=== PATIENT | male | born 1970 | race Caucasian/White ===

== ENCOUNTER 2025-06-20 18:22 | Emergency (ER) | payer OTHER, SELFPAY ==
[2025-06-20 18:25] VITALS: BP 164/106; PULSE 77; TEMP 37; O2SAT 97; BMI 33.4
--- NOTE | 2025-06-20 18:30 | ECG_ITS ---
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 Measurements Intervals [place] Rate: 77 P: 66 ME: 146 QRS: 103 QRSD: 106 T: -7 QT: 383 QTc: 434 Interpretive Statements SINUS RHYTHM POSSIBLE LEFT ATRIAL ENLARGEMENT [-0.1mV P-WAVE IN V1/V2] RIGHT AXIS DEVIATION [QRS AXIS > 100] NONSPECIFIC ST & T-WAVE ABNORMALITY INTERPRETATION BASED ON A DEFAULT AGE OF 40 YEARS No previous ECG available for comparison Electronically Signed On 06-21-2025 12:49:57 CDT by Kit Holden M.D. [email or web address] [id number]
--- NOTE | 2025-06-20 18:54 | XRR_ITS ---
PROCEDURE INFORMATION: Exam: XR Chest Exam date and time: 06/20/2025 7:10 PM Age: 55 years old Clinical indication: Pain; Chest pressure; Additional info: Cp TECHNIQUE: Imaging protocol: Radiologic exam of the chest. Views: 1 view. COMPARISON: US ROR duplex aorta 04/21/2025 8:58 AM FINDINGS: Lungs: Unremarkable. No consolidation. Pleural spaces: Unremarkable. No pleural effusion. No pneumothorax. Heart/Mediastinum: Unremarkable. No cardiomegaly. Bones/joints: Unremarkable. XR/XR chest 1V portable [id number] IMPRESSION: No acute findings.
[2025-06-20 19:20] LABS: Hematocrit 45.5 % (37-53); Hemoglobin 16.10 g/dL (11.27-16.99); Mean Corpuscular HGB Conc 35.4 g/dL (30-55); Mean Corpuscular Hemoglobin 31.0 pg (27-33); Mean Corpuscular Volume 87.5 fl (82-101); Nucleated Red Blood Cells % 0 %; Platelet Count 319 10^3/cmm (157-399); Red Blood Count 5.20 10^6/uL (3.85-5.65); White Blood Count 9.98 10^3/uL (3.29-11.43)
--- NOTE | 2025-06-20 19:23 | W.ED.CHESTPA ---
HPI - Chest Pain General: Chief Complaint: Chest Pain Stated Complaint: Chest Pressure Time Seen by Provider: 06/20/25 18:33 History of Present Illness: 55-year-old male with a history of hypertension presenting with chest pressure, some palpitations, and feeling flushed. Has had the symptoms the last couple days. He checks his blood pressure religiously. He is on telmisartan/hydrochlorothiazide and amlodipine. He notes that his blood pressure was as high as 155/104 at home, which was concerning to him because normally it is 120/80 to 130/85. He denies any respiratory symptoms including shortness of breath, cough, congestion. He denies lower extremity swelling. Related Data Previous Rx's ?Medication ?Instructions ?Recorded hydralazine 25 mg tablet 25 mg PO TID PRN High blood 06/20/25 pressure #30 tabs Allergies Allergy/AdvReac Type Severity Reaction Status Date / Time No Known Allergies Allergy Verified 06/20/25 18:36 Physical Exam Const: COMMON NORMALS: no acute distress GENERAL APPEARANCE: cooperative; not ill appearing and not frail appearing HENMT: COMMON NORMALS: normocephalic, atraumatic and Normal external nose present HEAD & SCALP: normocephalic and atraumatic FACE & SINUS: normal facial exam and face symmetric NOSE: Normal external nose present Eye: COMMON NORMALS: Equal, round and reactive pupils present and EOMs intact bilaterally PUPIL: Yes Equal, round and reactive pupils present Neck/C-Spine: GENERAL: Yes trachea midline Chest: CHEST: Yes Symmetrical chest wall rise Resp: COMMON NORMALS: normal respiratory effort, No retractions, No use of accessory muscles and clear to auscultation bilaterally AUSCULTATION: clear to auscultation bilaterally Cardio: COMMON NORMALS: regular rate and regular rhythm RATE: regular rate RHYTHM: regular rhythm GI: COMMON NORMALS: Normal to inspection, nondistended, normoactive bowel sounds present Extremity: COMMON NORMALS: no pedal edema Neuro: JAYDON COMA SCALE: document GCS findings [place] coma scale eye opening: Spontaneous [place] coma scale verbal response: Orientated [place] coma scale motor response: Obey commands Jaydon coma scale total score: 15 SENSORY EXAM: Yes extremities (intact) Psych: COMMON NORMALS: speech normal SPEECH: Yes normal speech Skin: COMMON NORMALS: no rashes or lesions noted GENERAL SKIN EXAM: no rashes or lesions noted Course Vital Signs: Vital signs: Vital Signs Temperature 98.6 F 06/20/25 18:25 Pulse Rate 60 06/20/25 22:09 Respiratory Rate 18 06/20/25 21:53 Blood Pressure 164/94 06/20/25 22:09 Pulse Oximetry 96 06/20/25 22:09 Oxygen Delivery Me thod Room Air 06/20/25 20:25 MDM - Chest Pain Medical Decision Making Patient is hypertensive. Vital signs are otherwise stable. EKG shows a sinus rhythm borderline right axis. Intervals are normal. No significant ST wave changes. Chest x-ray is nonacute. Sodium is 130. Otherwise BMP is normal. Troponins are 8 and 7.7 at 0 and 2 hours respectively. BNP is nondetectable. COVID is negative. He is given metoprolol with improvement in his blood pressure down to 138/90. He is feeling somewhat improved. He is stable for discharge. Will give him a prescription for clonidine to take if his blood pressure is high and is symptomatic. He is instructed not to take it unless necessary. Parameters are given Lab Data 06/20/25 19:13 06/20/25 19:13 Radiology Impressions Chest X-Ray 06/20/25 18:54 IMPRESSION: No acute findings. Laboratory Results WBC 9.98 10^3/uL (3.29-11.43) 06/20/25 19:13 RBC 5.20 10^6/uL (3.85-5.65) 06/20/25 19:13 Hgb 16.10 g/dL (11.27-16.99) 06/20/25 19:13 Hct 45.5 % (37-53) 06/20/25 19:13 MCV 87.5 fl (82-101) 06/20/25 19:13 MCH 31.0 pg (27-33) 06/20/25 19:13 MCHC 35.4 g/dL (30-55) 06/20/25 19:13 RDW 12.0 % (12.1-15.1) L 06/20/25 19:13 Plt Count 319 10^3/cmm (157-399) 06/20/25 19:13 MPV 8.8 fL (7.4-10.4) 06/20/25 19:13 Neut % (Auto) 69.6 % 06/20/25 19:13 Lymph % (Auto) 20.4 % 06/20/25 19:13 [place] % (Auto) 8.9 % 06/20/25 19:13 Eos % (Auto) 0.5 % 06/20/25 19:13 Baso % (Auto) 0.3 % 06/20/25 19:13 Neut # (Auto) 6.94 10^3/uL (1.8-7.7) 06/20/25 19:13 Lymph # (Auto) 2.0 10^3/uL (0.8-4.8) 06/20/25 19:13 [place] # (Auto) 0.9 10^3/uL (0.2-0.9) 06/20/25 19:13 Eos # (Auto) 0.1 10^3/uL (0.0-0.8) 06/20/25 19:13 Baso # (Auto) 0.0 10^3/uL (0.0-0.1) 06/20/25 19:13 Nucleated RBC % (auto) 0 % 06/20/25 19:13 Nucleated RBCs # 0.0 /100WBC 06/20/25 19:13 Sodium 130 mmol/L (136-145) L 06/20/25 19:13 Potassium 3.7 mmol/L (3.5-5.1) 06/20/25 19:13 Chloride 92 mmol/L (98-107) L 06/20/25 19:13 Carbon Dioxide 25 mmol/L (22-29) 06/20/25 19:13 Anion Gap 16.7 (5-19) 06/20/25 19:13 BUN 10 mg/dL (6-20) 06/20/25 19:13 Creatinine 1.0 mg/dL (0.7-1.2) 06/20/25 19:13 GFR Calculation 78.2 mL/min (90-130) L 06/20/25 19:13 Glucose 114 mg/dL (65-115) 06/20/25 19:13 Calculated Osmolality 270 mOsm/kg (285-295) L 06/20/25 19:13 Calcium 9.9 mg/dL (8.5-10.5) 06/20/25 19:13 Total Bilirubin 0.7 mg/dL (0.15-1.2) 06/20/25 19:13 AST 22 U/L (0-40) 06/20/25 19:13 ALT 22 U/L (0-41) 06/20/25 19:13 Alkaline Phosphatase 89 U/L (40-130) 06/20/25 19:13 Troponin T Baseline 8 ng/L (0-15) 06/20/25 19:13 Troponin T 120 Minute 7.71 ng/L (0-15) 06/20/25 20:57 Delta Troponin T -0.29 ABS# (0-10) L 06/20/25 20:57 NT-Pro-B Natriuret Pep < 36 pg/mL (0-125) 06/20/25 19:13 Total Protein 8.0 g/dL (6.6-8.7) 06/20/25 19:13 Albumin 5.2 g/dL (3.5-5.2) 06/20/25 19:13 Globulin 2.8 g/dL (1.3-4.6) 06/20/25 19:13 TSH 1.30 uIU/mL (0.27-4.20) 06/20/25 19:13 Urine Color Yellow (Yellow) 06/20/25 19:23 Urine Appearance Clear (CLEAR) 06/20/25 19:23 Urine pH 6.5 (5-7) 06/20/25 19:23 Ur Specific [place] 1.008 (1.005-1.030) 06/20/25 19:23 Urine Protein Negative (Negative) 06/20/25 19:23 Urine Glucose (UA) Negative (Normal) 06/20/25 19:23 Urine Ketones Negative (Negative) 06/20/25 19:23 Urine Blood Negative (Negative) 06/20/25 19:23 Urine Nitrate Negative (Negative) 06/20/25 19:23 Urine Bilirubin Negative (Negative) 06/20/25 19:23 Urine Urobilinogen 0.2 mg/dL (Negative) 06/20/25 19:23 Ur Leukocyte Esterase Negative (Negative) 06/20/25 19:23 Urine RBC 0-2 /hpf (0-2) 06/20/25 19:23 Urine WBC 0-5 /hpf (0-5) 06/20/25 19:23 Ur Squamous Epith Cells 0-5 /hpf (0-5) 06/20/25 19:23 Amorphous Sediment Not Reportable 06/20/25 19:23 Urine Bacteria None seen /hpf (NONE) 06/20/25 19:23 Hyaline Casts 0-4 /lpf H 06/20/25 19:23 Influenza A (PCR) Negative (Negative) 06/20/25 19:20 Influenza Type B (PCR) Negative (Negative) 06/20/25 19:20 RSV (PCR) Negative (Negative) 06/20/25 19:20 SARS-CoV-2 (PCR) Negative (Negative) 06/20/25 19:20 All radiology interpretation(s) finalized by discharge Discharge Plan Discharge Patient Disposition: Home Clinical Impression: Chest pain, Hypertension Condition: Stable Prescriptions: New hydralazine 25 mg tablet 25 mg PO TID PRN (Reason: High blood pressure) Qty: 30 0RF Discharge Orders: Discharge ED (Routine); Ordered 06/20/25 Ordered By: Ahmet Devlin Referrals: Darren Jeffries MD [Primary Care Provider, Family Practice] Patient Instructions: Chest Pain (ED), Hypertension (ED), Opioid Safety, Pain Management, Patient Portal & Ethan Instructions Activity Restrictions/Additional Instructions: Take your blood pressure medication as you would normally in the morning. Do not check your blood pressure tonight. Fill medication prescription tomorrow. If blood pressure is greater than 160 systolic (the top number) you may take the medication to lower your blood pressure. Wait at least an hour and a half before rechecking. Return for worsening pain despite treatment, development of other new concerning symptoms. Call your doctor tomorrow for follow-up appointment. Print Language: Latvian Coding Level of Care Code ED Health And Nutrition Specialist for Malcom Castellanos
[2025-06-20 19:29] VITALS: BP 164/105; PULSE 69; RESP 16; O2SAT 95
[2025-06-20 19:40] LABS: Glucose Urine UA Negative (Normal); Nitrate Urine Negative (Negative); Specific Gravity, Urine 1.008 (1.005-1.030)
[2025-06-20 19:45] LABS: Add Urine Microscopic? YES
[2025-06-20 20:04] LABS: Troponin(5th) Baseline 8 ng/L (0-15)
[2025-06-20 20:15] LABS: Alanine Aminotransferase 22 U/L (0-41); Albumin Level 5.2 g/dL (3.5-5.2); Alkaline Phosphatase 89 U/L (40-130); Anion Gap 16.7 (5-19); Aspartate Amino Transferase 22 U/L (0-40); Blood Urea Nitrogen 10 mg/dL (6-20); Calcium 9.9 mg/dL (8.5-10.5); Carbon Dioxide 25 mmol/L (22-29); Chloride 92 mmol/L (98-107); Creatinine Clr Calc Pharmacy 97.8218; Globulin 2.8 g/dL (1.3-4.6); Glucose 114 mg/dL (65-115); NT Pro B Type Natriuretic Pept < 36 pg/mL (0-125); Osmolality Calculated 270 mOsm/kg (285-295); Potassium 3.7 mmol/L (3.5-5.1); Sodium 130 mmol/L (136-145); Thyroid Stimulating Hormone 1.30 uIU/mL (0.27-4.20); Total Protein 8.0 g/dL (6.6-8.7)
[2025-06-20 20:20] LABS: Respiratory Syncytial Virus Ce NEGATIVE (Negative); SARS-CoV-2 PCR NEGATIVE (Negative)
[2025-06-20 20:25] VITALS: BP 165/95; PULSE 66; RESP 12; O2SAT 96
--- NOTE | 2025-06-20 20:32 | ECG_ITS ---
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
[2025-06-20] MEDS: metoprolol tartrate 1 mg/1 mL SDV 5 mL 5 MG IVP (20:58)
[2025-06-20 21:28] LABS: Troponin 5 2HR 7.71 ng/L (0-15)
[2025-06-20 21:32] LABS: Troponin 5 2HR Delta -0.29 ABS# (0-10)
[2025-06-20 21:53] VITALS: BP 138/90; PULSE 70; RESP 18; O2SAT 97
[2025-06-20] MEDS: LORazepam 1 MG/0.5 ML injection IVP (21:57)
[2025-06-20 22:09] VITALS: BP 164/94; PULSE 60; O2SAT 96
== END 2025-06-20 22:10 | disposition home or self-care (01) ==
PROVIDERS: Emergency Provider Emergency Medicine; PCP Family Medicine
DX: R07.9 Chest pain, unspecified (principal); I10 Essential (primary) hypertension; Z11.52 Encounter for screening for COVID-19
CPT/HCPCS: 36415; 71045; 80053; 81001; 83880; 84443; 84484; 85025; 87637; 93005; 96374; 96375; 99285; J2060; J3490

== ENCOUNTER 2025-06-23 06:05 | Observation (INO) | payer OTHER, SELFPAY ==
[2025-06-23] VITALS (12 sets, daily range): BP systolic 128–164; BP diastolic 84–108; PULSE 67–96; RESP 15–20; TEMP 36.8–37.2; O2SAT 94–99; BMI 33.4; BMI 31.7
--- NOTE | 2025-06-23 06:06 | ECG_ITS ---
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 Measurements Intervals [place] Rate: 92 P: 71 TN: 144 QRS: 66 QRSD: 94 T: 19 QT: 366 QTc: 455 Interpretive Statements SINUS RHYTHM MODERATE ST DEPRESSION [0.05+ mV ST DEPRESSION] Compared to ECG 06/20/2025 20:32:23 ST (T wave) deviation now present T-wave abnormality no longer present Electronically Signed On 06-24-2025 08:37:44 CDT by Reed Wang M.D. [email or web address]
--- NOTE | 2025-06-23 06:06 | XRR_ITS ---
PROCEDURE INFORMATION: Exam: XR Chest Exam date and time: 06/23/2025 6:12 AM Age: 55 years old Clinical indication: Pain; Chest pressure; Additional info: Cp TECHNIQUE: Imaging protocol: Radiologic exam of the chest. Views: 1 view. COMPARISON: CR (CHEST, ) 06/20/2025 7:10 PM FINDINGS: Lungs: Unremarkable. No consolidation. Pleural spaces: Unremarkable. No pleural effusion. No pneumothorax. Heart/Mediastinum: Unremarkable. No cardiomegaly. Bones/joints: Unremarkable. XR/XR chest 1V portable [id number] IMPRESSION: No acute findings.
--- OUTSIDE RECORDS SUMMARY | 2025-06-23 06:08 | XMS_ITS | Data Portability ---
Author Organization LASHAE [facility] Address [address] [address] Care Team Providers [employer] Pro Name Role Phone SHIRA JEFFRIES Primary Care Provider Assessment No assessment recorded. Plan of Treatment Reminders Order Date Submit Date Provider Last Modified By Organization Details Last Modified Time Details Appointments None recorded. Lab CMP, serum or plasma 2024 025 [facility], [address], [place], [address], 5 16:01:35 lipid panel, blood 2023 024 [facility], [address], [place], [address], 4 16:37:18 CMP, serum or plasma 2023 024 [facility], [address], [place], [address], 4 16:37:24 CBC 2023 024 [facility], [address], [place], [address], 15:29:07 Referral None recorded. Procedures None recorded. Surgeries None recorded. Imaging US, duplex, renal artery - [address] [facility] ([facility] [address] [place], [address], 11:40:03 Medication Orders telmisartan 80 mg-hydrochl orothiazide 25 mg tablet 2024 025 [facility]acy #[id number], [address] [facility], [place], [address], 14:26:48 buspirone 10 mg tablet 2024 025 [id number] [address], [facility], [place], [address], 14:38:44 hydrochloro thiazide 25 mg tablet 2023 025 [id number], [address], [facility], [place], [address], 08:30:08 Patient TargetsNo targets recorded. Patient InstructionsNo instructions recorded. Reason for Referral None Reported. Results Created Date Observation Date Name Description Value Unit Range Abnormal Flag Note LastModifiedBy Organization Detail LastModifiedTime 08/26/20 24 08/26/2024 CBC WBC 8.1 x10 4.5-10 .5 Not Available [facility] [address], [place], [address], 08/26/2024 15:29:07 08/26/20 24 08/26/2024 CBC RBC 5.00 x10 4.30-5 .90 Not Available [facility] [address], [place], [address], 08/26/2024 15:29:07 08/26/20 24 08/26/2024 CBC HGB 16.4 g/dL 13.5-1 8.0 Not Available [facility] [address], [place], [address], 08/26/2024 15:29:07 08/26/20 24 08/26/2024 CBC HCT 45.6 % 35.0-6 0.0 Not Available [facility] [address] [facility] [address] [facility], [place], [address], 08/26/2024 15:29:07 08/26/20 24 08/26/2024 CBC MCV 91.2 fL 80.0-9 9.9 Not Available [facility] [address] [facility] [address] [facility], [place], [address], 08/26/2024 15:29:07 08/26/20 24 08/26/2024 CBC MCH 32.7 pg 27.0-3 2.0 high Not Available [facility] [address] [facility], [place], [address], 08/26/2024 15:29:07 08/26/20 24 08/26/2024 CBC MCHC 35.9 g/dL 32.0-3 6.0 Not Available [facility] [address] [facility], [place], [address], 08/26/2024 15:29:08/26/20 24 08/26/2024 CBC RDW 13.4 % 11.5-1 4.5 Not Available [facility] [address] [facility] [address] [facility], [place], [address], 08/26/2024 15:29:07 08/26/20 24 08/26/2024 CBC plt 226.2 x10 150.0- 451.0 Not Available [facility] [address] [facility] [address] [facility], [place], [address], 08/26/2024 15:29:07 08/26/20 24 08/26/2024 CBC lymphocytes % 28.0 % 20.0-5 0.0 Not Available [facility] [address] [facility] [address], [place], [address], 08/26/2024 15:29:07 08/26/20 24 08/26/2024 CBC granulcytes % 60.3 % 30.0-7 0.0 Not Available [facility] [address] [facility] [address], [place], [address], 08/26/2024 15:29:07 08/26/20 24 08/26/2024 CBC monocytes % 8.4 % 2.0-16 .0 Not Available [facility] [address] [facility] [address], [place], [address], 08/26/2024 15:29:07 08/26/20 24 08/26/2024 CBC granulcytes# 4.9 x10 Not Sonia ilable [facility] [address] [facility] [address], [place], [address], 08/26/2024 15:29:07 08/26/20 24 08/26/2024 CBC lymphocytes # 2.3 x10 Not Available [facility] [address] [facility] [address], [place], [address], 08/26/2024 15:29:07 08/26/20 24 08/26/2024 CBC monocytes # 0.7 x10 Not Avai lable [facility] [address] [facility] [address], [place], [address], 08/26/2024 15:29:07 08/26/20 24 08/26/2024 LIPID PROFI LE (MALE ) cholesterol 240.0 mg/dL 0.0-20 0.0 high Not Available [facility] [address] [address], [place], [address], 08/26/2024 16:37:18 08/26/20 24 08/26/2024 LIPID PROFI LE (MALE ) trig 302.0 mg/dL 0.0-15 0.0 high Not Available [facility] [address], [place], [address], 08/26/2024 16:37:18 08/26/20 24 08/26/2024 LIPID PROFI LE (MALE ) HDL - direct 51.0 mg/dL >40.0 Not Available [facility] [address], [place], [address], 08/26/2024 16:37:18 08/26/20 24 08/26/2024 LIPID PROFI LE (MALE ) VLDL - direct 60.4 mg/dL Not Available [facility] [address], [place], [address], 08/26/2024 16:37:18 08/26/20 24 08/26/2024 LIPID PROFI LE (MALE ) LDL - direct 128.6 mg/dL 0.0-13 0.0 Not Available [facility] [address], [place], [address], 08/26/2024 16:37:18 08/26/20 24 08/26/2024 CMP (MALE ) glucose 100.0 mg/dL 60.0-9 9.0 high Not Available [facility] [address], [place], [address], 08/26/2024 16:37:24 08/26/20 24 08/26/2024 CMP (MALE ) BUN (blood urea nitrogen) 13.0 mg/dL 10.0-2 6.0 Not Available [facility] [address], [place], [address], 08/26/2024 16:37:24 08/26/20 24 08/26/2024 CMP (MALE ) creatinine (serum) 1.1 mg/dL 0.4-1. 5 Not Available [facility] [address] [facility], [place], [address], 08/26/2024 16:37:24 08/26/20 24 08/26/2024 CMP (MALE ) BUN/creatini ne ratio 11.82 ratio Not Available [facility] [address] [facility], [place], [address], 08/26/2024 16:37:24 08/26/20 24 08/26/2024 CMP (MALE ) eGFR calculated 74.7 Not Available [facility] [address] [facility], [place], [address], 08/26/2024 16:37:24 08/26/20 24 08/26/2024 CMP (MALE ) total protein 8.2 g/dL 6.0-8. 5 Not Available [facility] [address] [facility], [place], [address], 08/26/2024 16:37:24 08/26/20 24 08/26/2024 CMP (MALE ) total bilirubin 0.5 mg/dL 0.2-1. 3 Not Available [facility] [address] [facility], [place], [address], 08/26/2024 16:37:24 08/26/20 24 08/26/2024 CMP (MALE ) albumin 4.9 g/dL 3.5-5. 5 Not Available [facility] [address] [facility], [place], [address], 08/26/2024 16:37:24 08/26/20 24 08/26/2024 CMP (MALE ) globulin 3.3 calc Not Available [facility] [address] [facility] [address], [place], [address], 08/26/2024 16:37:24 08/26/20 24 08/26/2024 CMP (MALE ) AST (SGOT) 39.0 U/L 0.0-46 .0 Not Available [facility] [address] [facility], [place], [address], 08/26/2024 16:37:24 08/26/20 24 08/26/2024 CMP (MALE ) altv (SGPT) 35.0 U/L 13.0-6 9.0 normal Not Available [facility] [address] [facility] [address], [place], [address], 08/26/2024 16:37:24 08/26/20 24 08/26/2024 CMP (MALE ) A/G ratio 1.5 ratio Not Available [facility] [address], [place], [address], 08/26/2024 16:37:24 08/26/20 24 08/26/2024 CMP (MALE ) ALP phos 89.0 U/L 30.0-1 40.0 normal Not Available [facility] [address] [facility] [address], [place], [address], 08/26/2024 16:37:24 08/26/20 24 08/26/2024 CMP (MALE ) calcium 9.4 mg/dL 8.4-10 .5 Not Available [facility] [address], [place], [address], 08/26/2024 16:37:24 08/26/20 24 08/26/2024 CMP (MALE ) sodium 140.0 mmol/ L 136.0- 145.0 Not Available [facility] [address], [place], [address], 08/26/2024 16:37:24 08/26/20 24 08/26/2024 CMP (MALE ) potassium 4.0 mmol/ L 3.5-5. 1 Not Available [facility] [address] [facility] [address], [place], [address], 08/26/2024 16:37:24 08/26/20 24 08/26/2024 CMP (MALE ) chloride 102.0 mmol/ L 98.0-1 10.0 normal Not Available [facility] [address] [facility] [address], [place], [address], 08/26/2024 16:37:24 08/26/20 24 08/26/2024 CMP (MALE ) C02 29.0 mmol/ L 22.0-3 1.0 Not Available [facility] [address] [facility] [address], [place], [address], 08/26/2024 16:37:24 08/26/20 24 08/26/2024 CMP (MALE ) anion gap 9.0 calc Not Available [facility] [address] [facility] [address], [place], [address], 08/26/2024 16:37:24 08/26/20 24 08/26/2024 CMP (MALE ) osmolality 289.3 calc Not Available [facility] [address] [facility] [address], [place], [address], 08/26/2024 16:37:24 03/10/20 25 03/10/2025 COLOG UARD cologuard result reportable NEGATI VE negati ve normal The Colog uard (TM) test was perfo rmed on this speci men. NEGAT TERESA TEST RESUL T. A negat teresa Colog uard resul t indic ates a low likel ihood that a color ectal cance r (CRC) or advan ijeoma adeno ma (aliza omato us polyp s with more advan ijeoma pre-m align ant featu res) is prese nt. The chanc e that a perso n with a negat teresa Colog uard test has a color ectal cance r is less than 1 in 1500 (nega tive predi ctive value >99.9 %) or has an advan ijeoma adeno ma is less than 5.3% (nega tive predi ctive value 94.7% ). These data are based on a prosp ectiv e cross -sect ional study of 10,00 0 indiv idual s at [place] ge risk for color ectal cance r who were scree paul with both Colog uard and colon oscop y. (Mago Samano et al, N Engl J Med 2014; 370(1 4):12 86-12 97) The yonathan l value (refe rence range ) for this assay is negat teresa. COLOG UARD RE-SC REERICARDO NG RECOM MENDA TION: Perio dic color ectal cance r scree corey is an impor tant part of preve ntive healt hcare for asymp tomat ic indiv idual s at [place] ge risk for color ectal cance r. Follo wing a negat teresa Colog uard resul t, the Ameri can Cance r Socie ty and U.S. Multi -Soci ety Task Force scree corey guide lines recom mend a Colog uard re-sc reericardo ng inter michelle of 3 years . Refer ences : Ameri can Cance r Socie ty Guide line for Color ectal Cance r Scree corey: https ://alisa w.can cer.o rg/ca ncer/ colon -rect al-ca ncer/ detec tion- diagn osis- stagi ng/ac s-rec ommen datio ns.ht ml.; Domingo DK, Rosa enriquez CR, Vanna DAS, Color ectal Cance r Scree corey: Recom menda tions for Physi cians and Patie nts from the U.S. Multi -Soci ety Task Force on Color ectal Cance r Scree corey , Abdiel kurtz rolog y 2017; 112:1 016-1 030. TEST DESCR IPTIO N: [place] site algor ithmi c kaci sis of stool DNA-b iomar kers with hemog lobin immun oassa y. Quant itati ve value s of indiv idual bioma rkers are not repor table and are not assoc iated with indiv idual bioma rker resul t refer ence range s. Colog uard is inten ded for color ectal cance r scree corey of adult s of eithe r sex, 45 years or older , who are at [facility] for color ectal cance r (CRC) . Colog uard has been appro priti for use by the U.S. FDA. The perfo rmanc e of Colog uard was estab lishe d in a cross secti onal study of [facility] adult s aged 50-84 . Colog uard perfo rmanc e in patie nts ages 45 to 49 years was estim ated by sub-g austynp kaci sis of near- age group s. Colon oscop ies perfo rmed for a posit teresa resul t may find as the most clini jessy signi fican t lesio n: color ectal cance r [4.0% ], advan ijeoma adeno ma (incl uding sessi le david lars polyp s great er than or equal to 1cm diame ter) [20%] or non- advan ijeoma adeno ma [31%] ; or no color ectal neopl zechariah [45%] . These estim ates are deriv ed from a prosp ectiv e cross -sect ional scree corey study of 10,00 0 indiv idual s at [facility] risk for color ectal cance r who were scree paul with both Colog uard and colon oscop y. (Mago Samano et al, N Engl J Med 2014; 370(1 4):12 86-12 97.) Colog uard may produ ce a false negat teresa or false posit teresa resul t (no color ectal cance r or preca ncero us polyp prese nt at colon oscop y follo w up). A negat teresa Colog uard test resul t does not guara ntee the absen ce of CRC or advan ijeoma adeno ma (pre- cance r). The curre nt Colog uard scree corey inter michelle is every 3 years . (Amer ican Cance r Socie ty and U.S. Multi -Soci ety Task Force ). Colog uard perfo rmanc e data in a 10,00 0 patie nt pivot al study using colon oscop y as the refer ence metho d can be acces sed at the follo wing locat ion: www.e xactl abs.c om/re melvin . Addit ional descr iptio n of the Colog uard test proce ss, warni ngs and preca ution s can be found at www.c ologu arielle.c om. Not Available [facility] (Cologuard Orders Only) [address], [place], [address], 03/15/2025 05:08:58 03/30/2003/30/2025 CMP (MALE ) glucose 102.0 mg/dL 60.0-9 9.0 high Not Available [facility] [address], [place], [address], 03/30/2025 16:01:35 03/30/20 25 03/30/2025 CMP (MALE ) BUN (blood urea nitrogen) 10.0 mg/dL 10.0-2 6.0 Not Available [facility] [address], [place], [address], 03/30/2025 16:01:35 03/30/20 25 03/30/2025 CMP (MALE ) creatinine (serum) 0.9 mg/dL 0.4-1. 5 Not Available [facility] [address], [place], [address], 03/30/2025 16:01:35 03/30/20 25 03/30/2025 CMP (MALE ) BUN/creatini ne ratio 11.11 ratio Not Available [facility] [address], [place], [address], 03/30/2025 16:01:35 03/30/20 25 03/30/2025 CMP (MALE ) eGFR calculated 93.8 Not Available [facility] [address] [facility] [address] [facility], [place], [address], 03/30/2025 16:01:35 03/30/20 25 03/30/2025 CMP (MALE ) total protein 8.1 g/dL 6.0-8. 5 Not Available [facility] [address] [facility] Kelsea [facility], [place], [address], 03/30/2025 16:01:35 03/30/20 25 03/30/2025 CMP (MALE ) total bilirubin 0.6 mg/dL 0.2-1. 3 Not Available [facility] [address] [facility], [place], [address], 03/30/2025 16:01:35 03/30/20 25 03/30/2025 CMP (MALE ) albumin 4.8 g/dL 3.5-5. 5 Not Available [facility] [address] [facility] [address], [place], [address], 03/30/2025 16:01:35 03/30/20 25 03/30/2025 CMP (MALE ) globulin 3.3 calc Not Available [facility] [address] [facility], [place], [address], 03/30/2025 16:01:35 03/30/20 25 03/30/2025 CMP (MALE ) AST (SGOT) 32.0 U/L 0.0-46 .0 Not Available [facility] [address] [facility] [facility], [place], [address], 03/30/2025 16:01:35 03/30/20 25 03/30/2025 CMP (MALE ) altv (SGPT) 34.0 U/L 13.0-6 9.0 normal Not Available [facility] [address] [facility] [address] [facility], [place], [address], 03/30/2025 16:01:35 03/30/20 25 03/30/2025 CMP (MALE ) A/G ratio 1.5 ratio Not Available [facility] [address] [facility], [place], [address], 03/30/2025 16:01:35 03/30/20 25 03/30/2025 CMP (MALE ) ALP phos 70.0 U/L 30.0-1 40.0 normal Not Available [facility] [address] [facility] [address], [place], [address], 03/30/2025 16:01:35 03/30/20 25 03/30/2025 CMP (MALE ) calcium 9.6 mg/dL 8.4-10 .5 Not Available [facility] [address] [facility] [address], [place], [address], 03/30/2025 16:01:35 03/30/20 25 03/30/2025 CMP (MALE ) sodium 139.0 mmol/ L 136.0- 145.0 Not Available [facility] [address] [facility] [address], [place], [address], 03/30/2025 16:01:35 03/30/20 25 03/30/2025 CMP (MALE ) potassium 3.4 mmol/ L 3.5-5. 1 low Not Available [facility] [address] [facility] [address], [place], [address], 03/30/2025 16:01:35 03/30/20 25 03/30/2025 CMP (MALE ) chloride 101.0 mmol/ L 98.0-1 10.0 normal Not Available [facility] [address] [facility], [place], [address], 03/30/2025 16:01:35 03/30/20 25 03/30/2025 CMP (MALE ) C02 30.0 mmol/ L 22.0-3 1.0 Not Available [facility] [address], [place], [address], 03/30/2025 16:01:35 03/30/20 25 03/30/2025 CMP (MALE ) anion gap 8.0 calc Not Available [facility] [address] [facility] [address], [place], [address], 03/30/2025 16:01:35 03/30/20 25 03/30/2025 CMP (MALE ) osmolality 286.4 calc Not Available [facility] [address] [facility] [address], [place], [address], 03/30/2025 16:01:35 04/23/20 25 04/21/2025 US, duple x, renal arter y No observ ation record ed. [email or web address] [facility] [address] [place], [address], 04/26/2025 09:31:53 Result Notes None recorded. Problems Name Problem SNOMED Code Status Onset Date Resolution Date Notes Provider Name and Address Organization Details Recorded Time Essential hypertension 05589570 Active 2023 MARCO clark [facility] 4 17:33:45 Obesity 331694072 Active 2023 Shira Jeffries MD [address] [place] [address], [phone], [facility] 4 15:08:06 Hypertensive urgency 220828554 Active 2024 Shira Jeffries MD [address] [place] [address], [phone], [facility] 5 14:29:34 Anxiety 05075230 Active 2024 Shira Jeffries MD [address] [place] [address], [phone], [facility]ji 14:35:07 Problem Notes None recorded. Procedures Surgical History Date Name Laterality Status Provider Name and Address Organization Details Recorded Time 5 colonoscopy completed MARY PEDRAZA, [employer] [address] [place], [address], [facility]jiCKenji 03/15/2025 09:42:41 Hernia Repair completed [facility] 08/02/2024 17:33:28 Imaging Results None recorded. Procedure Notes None recorded. Medical Equipment None Reported. Allergies No known drug allergies Medications Name Sig Start Date Stop Date Status Note LastModified by Organization Details LastModified Time amlodipine 10 mg tablet Take 1 tablet every day by oral route. 2024 active Not Available Not Available Not Avai lable buspirone 10 mg tablet TAKE 1 TABLET BY MOUTH TWICE A DAY active Not Available Not Available No t Available hydrochloroth iazide 25 mg tablet TAKE 1 TABLET BY MOUTH EVERY DAY 04/05 completed Not Available Not Available Not Available telmisartan 80 mg-hydrochlor othiazide 25 mg tablet TAKE 1 TABLET BY MOUTH EVERY DAY active Not Available Not Available No t Available Vitals Date Recorded Body height Body mass index (BMI) Body weight Oxygen saturation Oxygen saturation in Arterial blood by Pulse oximetry Heart rate Systolic And Diastolic Provider Name and Address Organization Details Last Updated DateTime 5 172.72 cm 33.5 kg/m2 73183.3 2 g 98 % 98 % 65 /min 192/97 mm[Hg] Teressa Clifton [facility] 5 14:20:30 Date Recorded Respiratory rate Body height Body mass index (BMI) Body weight Body temperature Heart rate Oxygen saturation Oxygen saturation in Arterial blood by Pulse oximetry Systolic And Diastolic Provider Name and Address Organization Details Last Updated DateTime 4 20 /min 172.72 cm 34 kg/m2 609131. 9 g 97.5 [degF] 77 /min 97 % 97 % 172/112 mm[Hg] [facility] 14:52:01 Social History Question Answer Notes LastModified by Organizat ion Details LastModified Time Tobacco Smoking Status Former Smoker MARCO VELASCO eduardo [facility] 08/26/2024 14:54:47 Do You Have An Advance Directive? No Information not available 08/26/2024 Are You Blind Or Do You Have Difficulty Seeing? No Information not available 08/26/2024 What Is Your Level Of Caffeine Consumption? Heavy Information not available 08/26/2024 Are You Deaf Or Do You Have Serious Difficulty Hearing? No Information not available 08/26/2024 What Type Of Diet Are You Following? REGULAR Information not available 08/26/2024 What Is The Highest Grade Or Level Of School You Have Completed Or The Highest Degree You Have Received? [id number] Information not available 08/26/2024 When Did You Quit Smoking? 6-10yearssin celastcigare tte Information not available 03/30/2025 Which Of Your Hands Is Dominant? Left Information not available 08/26/2024 What Was The Date Of Your Most Recent Tobacco Screening? 03/30/2025 Information not available 03/30/2025 Have You Recently Traveled Abroad? No Information not available 08/26/2024 Do You Have Difficulty Walking Or Climbing Stairs? No Information not available 08/26/2024 Are You Currently In School? No Information not available 08/26/2024 Do You Have Any Dietary Restrictions? No Information not available 08/26/2024 Sex: Unknown Functional Status Question Answer Note LastModified by Organizat ion Details LastModified Time What is your level of alcohol consumption? Occasional Information not available 08/26/2024 Are you currently employed? No Information not available 08/26/2024 Do you have access to reliable transportation? No Information not available 08/26/2024 Are you able to walk independently without assistance or assistive devices? YESWOREST Information not available 08/26/2024 Are you able to care for yourself independently? Yes Information not available 08/26/2024 Do you have difficulty dressing, bathing, grooming, or toileting? No Information not available 08/26/2024 What is your exercise level? Moderate Information not available 08/26/2024 Mental Status Question Answer Note LastModified by Organization D etails LastModified Time Do you have difficulty concentrating, remembering or making decisions? No Information no t available 08/26/2024 Family History Relationship Description Onset Age of this Age Resolved Age Notes LastModified by Organization Details LastModified Time Father Hypertensive disorder tgregg Not available 2023 14:52:25 Father Malignant neoplastic disease tgregg Not available 2023 14:52:44 Medical History No medical history recorded. Immunizations Vaccine Type Date Status Note Provider Nam e and Address Organization Details Recorded Time zoster recombinant 5 completed Not Available [employer] 04/21/2025 09:26:16 Tdap 5 completed Not Available [facility] 04/21/2025 09:26:16 Past Encounters Encounter ID Performer Location Encounter Start Date Encounter Closed Date Diagnosis/Indication Diagnosis SNOMED-CT Code Diagnosis ICD10 Code Diagnosis IMO Codes Diagnosis Note [id number] Sihra Jeffries MD [facility] ([facility]) [address] [place] [phone] 08/26/2024 14:19:44 08/26/2024 15:26:20 Essential hypertension [id number] I10 Will restart hydrochlor othiazide given the elevations in his blood pressure. Will also check lab work today. Obesity [id number] E66.9 Encouraged regular exercise and weight loss. [id number] Shira Jeffries MD [facility] ([facility]) [address] [place] [phone] 03/30/2025 14:04:33 03/30/2025 15:49:56 Essential hypertension [id number] I10 Will transition to telmisarta n/hydrochl orothiazid e to help manage his blood pressure. Will check CMP. Hypertensive urgency [id number] I16.0 [id number] Given the significan t elevations in his previous history, I would recommend that we Doppler his renal arteries to ensure that this is not secondary to some undiagnose d issue. Anxiety [id number] F41.9 [id number] The patient has been having increasing issues with anxiety and is open to trying a medication as needed. [id number] Shira Jeffries MD [facility] ([facility]) [address] [place] [phone] 04/21/2025 09:26:07 04/23/2025 13:51:53 Health Concerns Section Related Observation LastModified by Organization Detai ls LastModified Time None Recorded Concern Status LastModified by Organization Details LastModified Time None Recorded Advance Directives Directive N: Payers Insurance Date Sequence Insurance Name Policy Number Policy Polanco Covered Member ID Polanco Member ID Guarantor Name 03/30/[address] [facility] [employer] () Baldo Mckeon [id number] Baldo Mckeon 04/23/2025 1 [employer] () Baldo Mckeon [id number] Baldo Mckeon Notes Date Note Type Note Provider Name and Address Organization Details Recorded Time 08/26/2024 text/html This is a 54-year-old gentleman that comes in today to establish care. The patient has been having issues with his blood pressure and he was previously on hydrochlorothiazide. Patient states it has been over a year since he has had any lab work done. The patient denies any other health concerns. Shira Jeffries MD [address] [place] [address], [phone], [facility] 08/29/2024 17:08:42 03/30/2025 text/html Hypertension IM/FMReported by PatientHPIFor severity, patient reportsstage 2 (>140/>90 mmhg). For associated symptoms, patient reportsshortness of breath,fatigue,palpita tions, andexcessive sweatingbut reportsno decline in exercise capacity,exertional dyspnea,no snoring,no sleep apnea,no muscle weakness,no numbness,no tingling,no tachycardia,no thinning skin,no flank pain,no headaches,no loss of vision, andno chest pain. For quality, patient reportshere for check-up. For onset/timing, patient reportsgradual onset. For context, patient reportsat restandemotional stress(patient states he has just felt off sometimes chest pressure). For alleviating factors, patient reportsmedication. For self care, patient reportsnot under emotional stress,non-smoker,on special diet,limiting alcohol intake, andexercises regularly. 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
[2025-06-23 06:19] LABS: Hematocrit 44.7 % (37-53); Hemoglobin 15.90 g/dL (11.27-16.99); Mean Corpuscular HGB Conc 35.6 g/dL (30-55); Mean Corpuscular Hemoglobin 31.0 pg (27-33); Mean Corpuscular Volume 87.1 fl (82-101); Nucleated Red Blood Cells % 0 %; Platelet Count 354 10^3/cmm (157-399); Red Blood Count 5.13 10^6/uL (3.85-5.65); White Blood Count 8.61 10^3/uL (3.29-11.43)
--- NOTE | 2025-06-23 06:22 | W.ED.CHESTPA ---
HPI - Chest Pain General: Chief Complaint: Chest Pain Stated Complaint: CP Time Seen by Provider: 06/23/25 06:06 Source: patient and EMS Mode of arrival: EMS Limitations: no limitations History of Present Illness: 55-year-old male states he been having chest pain over the last 4 days he was seen here on Saturday for chest pain he states he is feeling slightly better but over the last 2 days has been having intermittent episodes of chest pain he states this is morning he is having a pressure type pain the center of his chest he did take a nitro and his pain has resolved. States he has been having increased blood pressures as well and some palpitations he was started on hydralazine on Saturday. Denies any history of heart issues he has had some nausea denies any diaphoresis or shortness of breath Related Data Home Medications ?Medication ?Instructions ?Recorded ?Confirmed amlodipine 10 mg tablet 10 mg PO DAILY 06/23/25 06/23/25 buspirone 10 mg tablet 10 mg PO BID 06/23/25 06/23/25 telmisartan 80 1 tab PO DAILY 06/23/25 06/23/25 mg-hydrochlorothiazide 25 mg tablet Previous Rx's ?Medication ?Instructions ?Recorded hydralazine 25 mg tablet 25 mg PO TID PRN High blood 06/20/25 pressure #30 tabs Allergies Allergy/AdvReac Type Severity Reaction Status Date / Time No Known Allergies Allergy Verified 06/23/25 06:11 Review of Systems Card: Reports: chest pain Physical Exam Const: COMMON NORMALS: no acute distress, patient oriented x3 and healthy appearing HENMT: COMMON NORMALS: normocephalic and atraumatic HEAD & SCALP: normocephalic and atraumatic Neck/C-Spine: COMMON NORMALS: full ROM and supple Chest: COMMONS NORMALS: normal inspection of the chest Resp: COMMON NORMALS: normal respiratory effort, No retractions, No use of accessory muscles and clear to auscultation bilaterally AUSCULTATION: clear to auscultation bilaterally Cardio: COMMON NORMALS: regular rate, regular rhythm and No murmurs present (Cardio) RATE: regular rate RHYTHM: regular rhythm GI: COMMON NORMALS: Normal to inspection, nondistended, normoactive bowel sounds present, Soft to palpation, non-tender and no masses PALPATION: Yes Soft to palpation Extremity: COMMON NORMALS: normal to inspection and full ROM Neuro: COMMON NORMALS: patient oriented x3, moves all extremities and no focal motor deficits Psych: COMMON NORMALS: mental status grossly normal, Normal thought process present and cooperative THOUGHT PROCESS: Normal thought process present Skin: COMMON NORMALS: no rashes or lesions noted and no wounds GENERAL SKIN EXAM: no rashes or lesions noted Course Vital Signs: Vital signs: Vital Signs Temperature 98.9 F 06/23/25 06:06 Pulse Rate 89 06/23/25 06:39 Respiratory Rate 19 H 06/23/25 06:39 Blood Pressure 164/103 06/23/25 06:39 Pulse Oximetry 99 06/23/25 06:39 Oxygen Delivery Me thod Room Air 06/23/25 06:06 MDM - Chest Pain Medical Decision Making Patient presents here with chest pain differential includes ACS atypical chest pain pulmonary embolism aortic dissection gastritis and reflux. Patient here has no signs of pulmonary embolism has had no shortness of breath no signs of aortic dissection with no tearing chest pain this chest x-ray here was normal with no mediastinal widening no signs of pneumothorax or pneumonia. History is obtained from the patient has been having chest pain has been going on for 3 days with some anxiety and hypertension EKG was interpreted does have some ST depressions noted on his EKG did review his labs and visit from Saturday which was a normal workup. In the ER patient did receive Ativan he did receive nitro at home that did relieve his pain he did also receive aspirin. Patient has been stable while in the ER with minimal chest pains does have a history of hypertension was a former smoker no longer a smoker has family history of heart disease. Working diagnosis currently is chest pain he has no signs of ST elevation or NSTEMI but does have some ST depressions on EKG and will plan on admitting for further ACS workup spoke to hospitalist Dr. tomlin and will admit at this time Medical Records I reviewed the patient's medical records. Lab Data I reviewed the patient's lab results. 06/23/25 06:14 06/23/25 06:37 Radiology Impressions Chest X-Ray 06/23/25 06:06 IMPRESSION: No acute findings. Laboratory Results WBC 8.61 10^3/uL (3.29-11.43) 06/23/25 06:14 RBC 5.13 10^6/uL (3.85-5.65) 06/23/25 06:14 Hgb 15.90 g/dL (11.27-16.99) 06/23/25 06:14 Hct 44.7 % (37-53) 06/23/25 06:14 MCV 87.1 fl (82-101) 06/23/25 06:14 MCH 31.0 pg (27-33) 06/23/25 06:14 MCHC 35.6 g/dL (30-55) 06/23/25 06:14 RDW 11.9 % (12.1-15.1) L 06/23/25 06:14 Plt Count 354 10^3/cmm (157-399) 06/23/25 06:14 MPV 9.0 fL (7.4-10.4) 06/23/25 06:14 Neut % (Auto) 67.8 % 06/23/25 06:14 Lymph % (Auto) 22.2 % 06/23/25 06:14 [place] % (Auto) 8.9 % 06/23/25 06:14 Eos % (Auto) 0.5 % 06/23/25 06:14 Baso % (Auto) 0.3 % 06/23/25 06:14 Neut # (Auto) 5.83 10^3/uL (1.8-7.7) 06/23/25 06:14 Lymph # (Auto) 1.9 10^3/uL (0.8-4.8) 06/23/25 06:14 [place] # (Auto) 0.8 10^3/uL (0.2-0.9) 06/23/25 06:14 Eos # (Auto) 0.0 10^3/uL (0.0-0.8) 06/23/25 06:14 Baso # (Auto) 0.0 10^3/uL (0.0-0.1) 06/23/25 06:14 Nucleated RBC % (auto) 0 % 06/23/25 06:14 Nucleated RBCs # 0.0 /100WBC 06/23/25 06:14 Sodium 132 mmol/L (136-145) L 06/23/25 06:37 Potassium 3.7 mmol/L (3.5-5.1) 06/23/25 06:37 Chloride 93 mmol/L (98-107) L 06/23/25 06:37 Carbon Dioxide 24 mmol/L (22-29) 06/23/25 06:37 Anion Gap 18.7 (5-19) 06/23/25 06:37 BUN 10 mg/dL (6-20) 06/23/25 06:37 Creatinine 1.0 mg/dL (0.7-1.2) 06/23/25 06:37 GFR Calculation 78.2 mL/min (90-130) L 06/23/25 06:37 Glucose 135 mg/dL (65-115) H 06/23/25 06:37 Calculated Osmolality 275 mOsm/kg (285-295) L 06/23/25 06:37 Calcium 10.0 mg/dL (8.5-10.5) 06/23/25 06:37 Total Bilirubin 0.8 mg/dL (0.15-1.2) 06/23/25 06:37 AST 21 U/L (0-40) 06/23/25 06:37 ALT 21 U/L (0-41) 06/23/25 06:37 Alkaline Phosphatase 93 U/L (40-130) 06/23/25 06:37 Troponin T Baseline 11 ng/L (0-15) 06/23/25 06:37 Total Protein 8.0 g/dL (6.6-8.7) 06/23/25 06:37 Albumin 5.1 g/dL (3.5-5.2) 06/23/25 06:37 Globulin 2.9 g/dL (1.3-4.6) 06/23/25 06:37 Lipase 38 U/L (13-60) 06/23/25 06:37 All radiology interpretation(s) finalized by discharge EKG Data EKG 1: I personally reviewed and interpreted this EKG as follows: EKG interpretation date: 06/23/25 EKG interpretation time: 06:23 Interpretation: nsr hr [address] elevation qrs 97 qtc 406 Clincial Decision Support The following clinical decision support tools were used to aid in care of the patient HEART Score -> History: Moderately Suspicious, EKG: Non-specific Changes, Age: 45-64 yrs, Risk Factors: 1 or 2 Risk Factors, Troponin: Baseline Trop <16 ng/L. Resulting HEART Score: 4. Discharge Plan Discharge Patient Disposition: Admitted As Inpatient Clinical Impression: Chest pain Condition: Stable Coding Level of Care Code ED Product Consultant for Malcom Castellanos
[2025-06-23] MEDS: LORazepam 1 MG/0.5 ML injection IVP (06:34)
[2025-06-23 06:59] LABS: Troponin(5th) Baseline 11 ng/L (0-15)
[2025-06-23 07:05] LABS: Alanine Aminotransferase 21 U/L (0-41); Albumin Level 5.1 g/dL (3.5-5.2); Alkaline Phosphatase 93 U/L (40-130); Anion Gap 18.7 (5-19); Aspartate Amino Transferase 21 U/L (0-40); Blood Urea Nitrogen 10 mg/dL (6-20); Calcium 10.0 mg/dL (8.5-10.5); Carbon Dioxide 24 mmol/L (22-29); Chloride 93 mmol/L (98-107); Creatinine Clr Calc Pharmacy 97.8218; Globulin 2.9 g/dL (1.3-4.6); Glucose 135 mg/dL (65-115); Lipase 38 U/L (13-60); Osmolality Calculated 275 mOsm/kg (285-295); Potassium 3.7 mmol/L (3.5-5.1); Sodium 132 mmol/L (136-145); Total Protein 8.0 g/dL (6.6-8.7)
--- NOTE | 2025-06-23 08:06 | ECG_ITS ---
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 Measurements Intervals [place] Rate: 78 P: 67 [place]: 150 QRS: 56 QRSD: 97 T: 29 QT: 372 QTc: 426 Interpretive Statements SINUS RHYTHM POSSIBLE LEFT ATRIAL ENLARGEMENT [-0.1mV P-WAVE IN V1/V2] MINIMAL ST DEPRESSION [0.025+ mV ST DEPRESSION] Compared to ECG 06/23/2025 06:07:08 No significant changes Electronically Signed On 06-24-2025 09:00:10 CDT by Reed Wang M.D. [email or web address] [id number]
[2025-06-23 08:43] LABS: Troponin 5 2HR 9.28 ng/L (0-15)
[2025-06-23 08:46] LABS: Troponin 5 2HR Delta -1.72 ABS# (0-10)
--- NOTE | 2025-06-23 09:28 | USCV_ITS ---
Baldo Mckeon Age: 55 Gender: M : 1970 Exam Date: 06/23/2025 09:57 Ordering Phys: Rosendo Farooq MD Technologist: Exam Location: [facility] Indication: cehst pain BP: 128 / 87 HR: 72 Rhythm: Sinus Technical Quality: Adequate MEASUREMENTS (Male / Female) Normal Values 2D ECHO LV Diastolic Diameter PLAX 4.8 cm 4.2 - 5.9 / 3.9 - 5.3 cm IVS Diastolic Thickness 1.1 cm 0.6 - 1.0 / 0.6 - 0.9 cm IVS Systolic Thickness 1.5 cm LVPW Diastolic Thickness 1.3 cm 0.6 - 1.0 / 0.6 - 0.9 cm LVPW Systolic Thickness 1.7 cm LVOT Diameter 2.0 cm LV Ejection Fraction 2D Teich 68.9 % LV Ejection Fraction MOD 4C 68.2 % LV Ejection Fraction MOD 2C 63.6 % LV Ejection Fraction 2C AL 61.7 % LA Diameter 3.5 cm RA Systolic Volume 4C AL 35.7 ml RA Systolic Volume 4C MOD 33.8 ml LA Sys Volume AL 48.0 cm cubed LA Sys Volume Index AL 21.6 cm cubed/m squared Aorta at Sinotubular Diameter 3.0 cm M-MODE LA Ao Ratio MM 1.3 AV Cusp Separation MM 2.8 cm DOPPLER AV Peak Velocity 140.0 cm/s LVOT Peak Velocity 114.0 cm/s AV Area Cont Eq vti 2.7 cm squared AV Area Cont Eq pk 2.6 cm squared MV Peak Velocity 122.0 cm/s MV Area PHT 3.3 cm squared Mitral E to A Ratio 1.2 TR Peak Velocity 195.0 cm/s TR Peak Gradient 15.2 mmHg TV Peak E Velocity 90.0 cm/s PV Peak Velocity 166.0 cm/s FINDINGS Left Ventricle Normal left ventricular size and systolic function, EF 64%. No regional wall motion abnormalities. Grade I/IV diastolic dysfunction (abnormal relaxation filling pattern), normal to mildly elevated filling pressures. Right Ventricle Normal right ventricular size and systolic function. Right Atrium Normal right atrial size. Left Atrium Normal left atrial size. IA Septum Normal appearance of the interatrial septum. Mitral Valve Trace mitral valve regurgitation. Aortic Valve No gross abnormalities noted Tricuspid Valve Trace tricuspid valve regurgitation. Estimated pulmonary artery peak systolic pressure within normal limits Pulmonic Valve Pulmonic valve not well visualized. Pericardium No pericardial effusion. Aorta Normal diameter of the aortic root and ascending thoracic aorta. IVC Inferior vena cava not visualized. CONCLUSIONS Normal left ventricular size and systolic function, EF 64%. No regional wall motion abnormalities. Grade I/IV diastolic dysfunction (abnormal relaxation filling pattern), normal to mildly elevated filling pressures. Trace mitral valve regurgitation. Trace tricuspid valve regurgitation. Estimated pulmonary artery peak systolic pressure within normal limits. There is no pericardial effusion. There are no intracardiac masses. No similar previous studies are available for comparison Dr Scarlett Whatley MD FAC (Electronically Signed) Final Date: 23 June 2025 21:43 S
--- NOTE | 2025-06-23 10:00 | PC.NURSE ---
PER DR. ISIDRO PT OK'D TO TAKE HOME MORNING MEDS. DR. PHOENIX NOTIFIED PT TOOK HOME MEDS. PHARMACY CONTACTED TO RETIME AM MEDS TO TOMORROW PER DR. PHOENIX.
--- NOTE | 2025-06-23 12:06 | ECG_ITS ---
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 Measurements Intervals [place] Rate: 64 P: 42 ME: 151 QRS: 59 QRSD: 100 T: 45 QT: 428 QTc: 445 Interpretive Statements SINUS RHYTHM NONSPECIFIC T-WAVE ABNORMALITY Compared to ECG 06/23/2025 06:23:32 T-wave abnormality now present ST (T wave) deviation no longer present Electronically Signed On 06-24-2025 08:56:24 CDT by Reed Wang M.D. [email or web address] [id number]
[2025-06-23 13:06] LABS: Troponin 5 6HR 10.33 ng/L (0-15)
[2025-06-23 13:07] LABS: Troponin 5 6HR Delta -0.67 ng/L (0-12)
--- NOTE | 2025-06-23 18:22 | PM.HP ---
Providers/Chief Complaint Admitting Physician: Rosendo Farooq MD Primary Care Provider: Darren Jeffries MD Chief Complaint: CP History of Present Illness Baldo Mckeon is a 55 year old male in general good health recently moved to [place] from [facility] with his Lelo. He states that has been stressful and they have been unlucky since they moved here. He states it was hard to find a house that could be bought even at full asking madden. Patient states that he had pressure in his left pectoral muscle not radiating 2-3 off and on he lost his appetite and has been anxious concerned that it could be his heart so losing sleep. Saturday the he was seen in the emergency department and EKG x-ray and blood work are okay so he was told it might be anxiety and discharged home. Patient had prescription for hydralazine and states that lowered his blood pressure but increased his heart rate from 60s to 90s. Today he returned with more chest pain took a nitro and that helped. Cardiac enzymes again negative. EKGs show inferolateral T wave flattening leads 2,3, V5 and V6 cannot exclude ischemia. This actually was worse on Saturday than it is now but this is the patient's second EMD visit. Review of Systems Narrative: General No fevers chills Cardiovascular positive for chest pain fluttering and jittery with hypertension Respiratory no shortness of breath cough wheezing GI no nausea vomiting constipation he has had decreased appetite and states he has had some diarrhea that he attributes to not eating, denies GERD no dysuria hematuria Neuro no seizures strokes Psych he admits to anxiety states he has PTSD. 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 TElls me his brother in law recent [place] and Neighbor with [place] so pt worried. states he snores but does not stop breathing Medications/Allergies Home Medications ?Medication ?Instructions ?Recorded ?Confirmed ?Last Taken ?Type hydralazine 25 mg tablet 25 mg PO TID PRN High blood 06/20/25 06/23/25 06/22/25 Rx pressure #30 tabs amlodipine 10 mg tablet 10 mg PO DAILY 06/23/25 06/23/25 06/23/25 08:30 History buspirone 10 mg tablet 10 mg PO BID 06/23/25 06/23/25 06/23/25 08:30 History telmisartan 80 1 tab PO DAILY 06/23/25 06/23/25 06/23/25 08:30 History mg-hydrochlorothiazide 25 mg tablet Allergies Allergy/AdvReac Type Severity Reaction Status Date / Time No Known Allergies Allergy Verified 06/23/25 06:11 PFSH Acute PFSH: Social History (Updated 06/23/25 @ 18:36 by Rosendo Farooq MD) Smoking and tobacco/nicotine status: tobacco/nicotine user, details unknown cigarettes Packs smoked per day: 0.5 Years cigarettes smoked: 23 Number of cigarettes per day: 11-20 [ Other cigarette details: Quit age 46] Alcohol intake: current Alcohol intake frequency: 0-2 Drinks per Day Alcohol type: beer Substance/Drug Use: never Additional social history: Wants full code as discussed today with Rosendo Farooq MD on 06/23/2025 in the presence of his Lelo 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 Vitals/I&O/Wt Last Vital Signs Temp 98.9 F 06/23/25 16:28 Pulse 72 06/23/25 16:28 Resp 15 06/23/25 16:28 BP 143/84 06/23/25 16:28 Pulse Ox 95 06/23/25 16:28 O2 Del Method Room Air 06/23/25 16:28 06/23/25 06/23/25 06/23/25 06:59 14:59 22:59 Intake Total 0 / 0 Balance 0 / 0 Weight last 48 hrs Weight 94.801 kg Weight 99.79 kg Physical Exam Narrative: General well-developed well-nourished male modestly anxious CV regular rate and rhythm Lungs clear to auscultation bilaterally Abdomen positive bowel tones soft nontender Calves no tenderness cords pedal edema Mood and affect anxious warm mildly damp Data 06/23/25 06:14 06/23/25 06:37 A&P Assessment and plan 1. Chest pain: This is somewhat atypical in the patient is anxious but this is his second visit and he has nonspecific ST-T wave changes. Cardiac enzymes negative. Proceed with treadmill stress echo. Avoid beta blockers for now. 2. Hypertension: hold diuretic due to hyponatremia mild. PDMP PDMP Reviewed: Not Reviewed Attestations Medical Necessity Statement*: Patient will require less than 2 midnights in the hospital. Coding Level of Care Code 40062 Diagnoses Chest pain R07.9 Hypertension I10 Time Spent (min) 70
[2025-06-24] VITALS (7 sets, daily range): BP systolic 125–155; BP diastolic 76–90; PULSE 77–102; RESP 16–20; TEMP 36.4–36.7; O2SAT 96–98
--- NOTE | 2025-06-24 06:00 | ECG_ITS ---
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 Interpretive Statements Lung unchanged pre/post procedure; Intraprocedure shortess of breath; Symptoms resoled by discharge PROCEDURE: At the baseline, the patient's blood pressure was 141/64 with a heart rate of 88. The baseline electrocardiogram showed normal sinus rhythm with normal ST-Ts.. The patient exercised for 8 minutes and 1 second on a standard Andrea protocol. Patient attained a maximum heart rate of 174 beats per minute(104% of the maximum predicted heart rate) with a blood pressure at the peak exercise of 205/92 mm Hg. The EKG at the peak exercise revealed. Patient did not have any chest pain or any significant EKG changes with the exercise During the recovery phase, there were no new changes. Blood pressure at the end of the recovery phase was 128/76 mm Hg with a heart rate of 102 per minute. Echocardiographic pictures were taken at the baseline, immediately following the peak exercise and during the recovery phase. CONCLUSION: 1. No significant EKG changes with the treadmill exercise 2. No exercise-induced chest pain or cardiac arrhythmia 3. Fair exercise tolerance, attained a maximum of 10.2 METs 4. Please see separate report for the echocardiographic response to exercise. Electronically Signed On 06-24-2025 23:40:12 CDT by Scarlett Whatley M.D. [id number]
--- NOTE | 2025-06-24 13:32 | USCV_ITS ---
Baldo Mckeon Age: 55 Gender: M : 1970 Exam Date: 06/24/2025 13:43 Ordering Phys: Rosendo Farooq MD Technologist: Exam Location: [facility] Indication: chest pain Rhythm: Sinus Patient History: Chest pain Cardiac Medications: NONE Medications in past 24 hours: Contrast: Stress Results Protocol: Andrea Total dose(mL): Exercise Duration (min:sec): 8:00 METS: 10.7 Resting HR: 97 Resting BP: 141 / 64 Peak HR: 174 Peak BP: 205 / 106 Max Predicted HR: 167 104 % Max Predicted HR Target HR: 142 Double Product: 14459 Stress Summary: The patient's target heart rate was achieved BP Response: Normal Reason for Termination: Maximal effort/unable to continue Cardiac Symptoms: None ECG Analysis Resting ECG: Please see separate report Stress ECG: Please see separate report Arrhythmia: Please see separate report MEASUREMENTS (Male/Female) Normal Values FINDINGS The baseline echocardiogram revealed normal LV size and ejection fraction. Segmental wall motion analysis revealed no gross wall motion abnormalities. The aortic and the mitral valve appears to hide no gross abnormalities. Aortic annulus was of normal size . No pericardial effusion With a peak exercise, there was diffuse hypokinesis of the inferolateral wall segment. All other segments were found to be augmenting well During the recovery, there was no new wall motion abnormalities. CONCLUSIONS 1. Exercise-induced hypokinesis of the inferolateral wall segment, suggesting ischemia in the distribution of the left circumflex artery No similar previous studies are available for comparison Dr Scarlett Whatley MD [facility] (Electronically Signed) Final Date: 24 June 2025 16:20 S
--- NOTE | 2025-06-24 16:33 | P.PN_ITS ---
Subjective 2 Subjective: 55-year-old male with anxiety and recent hypertension treated with hydralazine had tachyphylaxis. He feels worse when he takes that medication. Patient has atypical chest pain not brought on by exertion. He smoked half pack a day for 23 years. Exercise stress echo this morning showed inferior ST-T wave depression and Dr. Whatley reads the stress echo was positive inferior lateral which corresponds. Patient tells me he reached his goal but elected to go further. He went 8 minutes to a heart rate of 174. Systolic blood pressure was 205 over diastolic 106 and patient did not have chest pain. Vitals/I&O/Wt Last Vital Signs Temp 97.9 F 06/24/25 15:33 Pulse 90 06/24/25 15:33 Resp 17 06/24/25 15:33 BP 127/86 06/24/25 15:33 Pulse Ox 96 06/24/25 15:33 O2 Del Method Room Air 06/24/25 15:33 Weight last 48 hrs Weight 94.2 kg Weight 94.2 kg Weight 94.801 kg Weight 99.79 kg Physical Exam 2 Narrative: General well-developed well-nourished male modestly anxious CV regular rate and rhythm Lungs clear to auscultation bilaterally Abdomen positive bowel tones soft nontender Calves no tenderness cords pedal edema Mood and affect anxious warm mildly damp Data 06/23/25 06:14 06/23/25 06:37 A&P Assessment and plan 1. Chest pain: This is somewhat atypical in the patient is anxious but this is his second visit and he has nonspecific ST-T wave changes. Cardiac enzymes negative. Proceed with treadmill stress echo which was positive on echo and EKG but negative for symptomatology and he did 10.2 METS. 2. Hypertension: stop hydralazine due to tachycardia. Patient states that because he works out a lot his baseline heart rate is a little slow PDMP PDMP Reviewed: Not Reviewed Attestations 2 Medical Necessity Statement*: Patient was counseled regarding above findings and he is referred to cardiology for planned selective coronary angiogram and possible intervention in the morning he will require additional midnight in the hospital changed inpatient Coding Level of Care Code 70711 Diagnoses Chest pain R07.9 Hypertension I10 Time Spent (min) 35
--- NOTE | 2025-06-24 17:07 | P.CONIM_ITS ---
Providers/Reason For Consult 2 Consulting Physician/Specialty*: LEIF Whatley MD/cardiology Reason for Consult*: Chest pain/abnormal stress test Requesting Physician: Dr. Farooq Attending Physician: Rosendo Farooq MD Primary Care Provider: Darren Jeffries MD History of Present Illness History of Present Illness Baldo Mckeon is a 55 year old male, is admitted to the hospital through the emergency room where he presented with complaints of chest pain. He had an exercise stress echo today. The test was found to be abnormal. Cardiology consult is requested for further cardiac evaluation recommendations. This patient is known to have high blood pressure and has been on medications off and on. For the last 1 week or so, he been experiencing episodes of chest pressure/pain. He describes the symptoms as a heaviness/tightness in his chest associated with toothache type of pain. The pain may last for couple of minutes and then goes away by itself. The pressure may last for several minutes. With the symptoms, he came to the emergency room on last Saturday. His initial cardiac workup was negative. He was discharged home from the emergency room. He came back on Saturday night with worsening of the symptoms. So he got admitted to the hospital for further evaluation. He been having episodes of pain while being in the hospital. Today he had the exercise stress echo. He exercised for 8 minutes and attained the target heart rate. Apparently did not have any chest pain during the stress test. The stress echo revealed exercise-induced wall motion abnormality in the inferolateral wall segment suggesting possible ischemia in the distribution of the left circumflex artery. Patient never had similar pains in the past. He was diagnosed with high blood pressure many years ago. He been taking medications off and on. But for the last 4 months, he been taking the medication on a regular basis. Up until a week ago, the blood pressure has been staying in the normal range. Since he started having the chest pain, the blood pressure has been staying high. The patient also been undergoing a lot of stress situation recently. He denies any fever, chills or cough. No unusual shortness of breath. No history for any diabetes. He has a history of traumatic injury to the kidney and half of the kidney on the right side is damaged? His father had a myocardial infarction in the 40s. No other relevant family history. He is retired from the [employer] a year ago. 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 Review of Systems 2 Narrative: CONSTITUTIONAL: No fever or chills. EYES: No blurring of vision or other visual disturbances lately. ENT: No hoarseness of voice, auditory disturbances or sore throat. CARDIOVASCULAR: As mentioned above. RESPIRATORY: No significant cough. GASTROINTESTINAL: No hematemesis or melena. GENITOURINARY: No dysuria or hematuria. INTEGUMENTARY: No skin rashes or history of skin cancer. NEURO: No transient ischemic attacks or amaurosis. Has been undergoing a lot of stress at home PSYCHIATRIC: No history of psychosis or major depression. HEMATOLOGIC: No bleeding disorders or significant anemia. ENDOCRINE: No history of polyuria or polydipsia. MUSCULOSKELETAL: No recent joint pain or swelling. ALLERGY/IMMUNOLOGY: As mentioned above. Medications/Allergies Home Medications ?Medication ?Instructions ?Recorded ?Confirmed ?Last Taken ?Type hydralazine 25 mg tablet 25 mg PO TID PRN High blood 06/20/25 06/23/25 06/22/25 Rx pressure #30 tabs amlodipine 10 mg tablet 10 mg PO DAILY 06/23/2510/1706/23/25 08:30 History buspirone 10 mg tablet 10 mg PO BID 06/23/2506/23/25 08:30 History telmisartan 80 1 tab PO DAILY 06/23/2510/1706/23/25 08:30 History mg-hydrochlorothiazide 25 mg tablet Allergies Allergy/AdvReac Type Severity Reaction Status Date / Time No Known Allergies Allergy Verified 06/23/25 06:11 Current Medications Generic Name Dose Route Start Last Admin Trade Name Arnelq PRN Reason Stop Dose Admin Amlodipine Besylate 10 mg 06/24/25 05:00 06/24/25 04:37 Amlodipine 10 Mg Tablet PO 10 mg DAILY MARY Administration Aspirin 81 mg 06/24/25 05:00 06/24/25 04:37 Aspirin 81 Mg Ec Tablet PO 81 mg DAILY MARY Administration Buspirone HCl 10 mg 06/24/25 05:00 06/24/25 04:37 Buspirone 10 Mg Tablet PO 10 mg BID MARY Administration Lorazepam 1 mg 06/23/25 18:15 06/24/25 07:59 Lorazepam 1 Mg Tablet PO 1 mg BID PRN Administration Anxiety or insomnia Losartan Potassium 50 mg 06/24/25 05:00 06/24/25 04:37 Losartan 50 Mg Tablet PO 50 mg DAILY MARY Administration PFSH Acute 2 PFSH: Social History (Updated 06/23/25 @ 18:36 by Rosendo Farooq MD) Smoking and tobacco/nicotine status: tobacco/nicotine user, details unknown cigarettes Packs smoked per day: 0.5 Years cigarettes smoked: 23 Number of cigarettes per day: 11-20 [ Other cigarette details: Quit age 46] Alcohol intake: current Alcohol intake frequency: 0-2 Drinks per Day Alcohol type: beer Substance/Drug Use: never Additional social history: Wants full code as discussed today with Rosendo Farooq MD on 06/23/2025 in the presence of his Lelo 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 Not in any acute distress. HEENT: No significant pallor, icterus or lymphadenopathy.Oral cavity: There are no mucous membrane lesions. NECK: Trachea appears to be central. No masses noted. No JVD or thyromegaly appreciated. RESPIRATORY: Chest is symmetrical. No intercostals muscle retraction or any accessory muscle activation. There is no chest wall tenderness. Breath sounds are heard bilaterally. No rales or rhonchi heard. No evidence of any consolidation. BREASTS: Deferred. HEART: The heart sounds are normal. No S3 or S4. No significant murmurs. No pericardial rub ABDOMEN: No vessel pulsations or distention. No tenderness. No organomegaly appreciated. Bowel sounds are normally heard. : Deferred. RECTAL: Deferred. LYMPHATIC: No lymphadenopathy noted in the neck. EXTREMITIES: No edema or cyanosis. No clubbing. MUSCULOSKELETAL: No acute joint deformities or swelling SKIN: There are no significant rashes or ecchymosis NEUROPSYCHIATRIC: The patient is alert and oriented x3. Appears to be in a good mood. No tremors or rigidity noted. Data 06/23/25 06:14 06/23/25 06:37 Other Labs: Laboratory Last Values WBC 8.61 10^3/uL (3.29-11.43) 06/23/25 06:14 RBC 5.13 10^6/uL (3.85-5.65) 06/23/25 06:14 Hgb 15.90 g/dL (11.27-16.99) 06/23/25 06:14 Hct 44.7 % (37-53) 06/23/25 06:14 MCV 87.1 fl (82-101) 06/23/25 06:14 MCH 31.0 pg (27-33) 06/23/25 06:14 MCHC 35.6 g/dL (30-55) 06/23/25 06:14 RDW 11.9 % (12.1-15.1) L 06/23/25 06:14 Plt Count 354 10^3/cmm (157-399) 06/23/25 06:14 MPV 9.0 fL (7.4-10.4) 06/23/25 06:14 Neut % (Auto) 67.8 % 06/23/25 06:14 Lymph % (Auto) 22.2 % 06/23/25 06:14 Rush % (Auto) 8.9 % 06/23/25 06:14 Eos % (Auto) 0.5 % 06/23/25 06:14 Baso % (Auto) 0.3 % 06/23/25 06:14 Neut # (Auto) 5.83 10^3/uL (1.8-7.7) 06/23/25 06:14 Lymph # (Auto) 1.9 10^3/uL (0.8-4.8) 06/23/25 06:14 Rush # (Auto) 0.8 10^3/uL (0.2-0.9) 06/23/25 06:14 Eos # (Auto) 0.0 10^3/uL (0.0-0.8) 06/23/25 06:14 Baso # (Auto) 0.0 10^3/uL (0.0-0.1) 06/23/25 06:14 Nucleated RBC % (auto) 0 % 06/23/25 06:14 Nucleated RBCs # 0.0 /100WBC 06/23/25 06:14 Sodium 132 mmol/L (136-145) L 06/23/25 06:37 Potassium 3.7 mmol/L (3.5-5.1) 06/23/25 06:37 Chloride 93 mmol/L (98-107) L 06/23/25 06:37 Carbon Dioxide 24 mmol/L (22-29) 06/23/25 06:37 Anion Gap 18.7 (5-19) 06/23/25 06:37 BUN 10 mg/dL (6-20) 06/23/25 06:37 Creatinine 1.0 mg/dL (0.7-1.2) 06/23/25 06:37 GFR Calculation 78.2 mL/min (90-130) L 06/23/25 06:37 Glucose 135 mg/dL (65-115) H 06/23/25 06:37 Calculated Osmolality 275 mOsm/kg (285-295) L 06/23/25 06:37 Calcium 10.0 mg/dL (8.5-10.5) 06/23/25 06:37 Total Bilirubin 0.8 mg/dL (0.15-1.2) 06/23/25 06:37 AST 21 U/L (0-40) 06/23/25 06:37 ALT 21 U/L (0-41) 06/23/25 06:37 Alkaline Phosphatase 93 U/L (40-130) 06/23/25 06:37 Troponin T Baseline 11 ng/L (0-15) 06/23/25 06:37 Troponin T 120 Minute 9.28 ng/L (0-15) 06/23/25 08:22 Delta Troponin T -1.72 ABS# (0-10) L 06/23/25 08:22 Troponin T Hi Sens 6Hr 10.33 ng/L (0-15) 06/23/25 12:31 Troponin T Hi Sens 6Hr Delta -0.67 ng/L (0-12) L 06/23/25 12:31 Total Protein 8.0 g/dL (6.6-8.7) 06/23/25 06:37 Albumin 5.1 g/dL (3.5-5.2) 06/23/25 06:37 Globulin 2.9 g/dL (1.3-4.6) 06/23/25 06:37 Lipase 38 U/L (13-60) 06/23/25 06:37 Other data: Stress echo from today 1. Exercise-induced hypokinesis of the inferolateral wall segment, suggesting ischemia in the distribution of the left circumflex artery No similar previous studies are available for comparison A&P Assessment and plan 1. Abnormal cardiovascular stress test: The implication of the abnormal stress echocardiogram was discussed with the patient detail. The limitations of this test were discussed. In view of the ongoing symptoms, he requires further cardiac workup 2. Chest pain, unspecified type: The patient's chest pain is somewhat atypical. However in view of the abnormal stress test and the risk factors, possibility of him having underlying coronary disease is very high. For further evaluation of previous symptoms, a cardiac catheterization would be appropriate. 3. Primary hypertension: Currently the blood pressure is under control. May continue on the current management. 4. Traumatic injury of kidney: The kidney function seems to be appropriate at this time. Plan: The cholesterol status is not known. We may do a lipid profile on the blood in the lab. I may start him on Lipitor 40 mg p.o. now and daily For further evaluation of the patient's symptoms, a cardiac catheterization would be appropriate. The risks and benefits were discussed with the patient in detail. The risk of bleeding, hematoma, vascular injury, myocardial infarction, myocardial perforation, malignant cardiac arrhythmias ,CVA, renal failure and other concomitant complications were explained in detail. Patient understood this well and consented to proceed. I may go ahead and schedule the patient for a cardiac catheterization tomorrow Based on the angiogram findings, further recommendations will be made. Thank you for the opportunity to evaluate this patient and make these recommendations PDMP PDMP Reviewed: Not Reviewed Coding Level of Care Code 17321 Diagnoses Abnormal cardiovascular stress test R94.39 Chest pain, unspecified type R07.9 Chest pain type: unspecified Primary hypertension I10 Hypertension type: primary hypertension Traumatic injury of kidney S37.009A
[2025-06-24] MEDS: CITALOPRAM 10 MG TABLET PO (18:19)
[2025-06-25] VITALS (8 sets, daily range): BP systolic 115–142; BP diastolic 80–85; PULSE 61–89; RESP 16–18; TEMP 36.3–36.7; O2SAT 95–99
--- NOTE | 2025-06-25 06:31 | XACV_ITS ---
Exam Room: 2 Ht: 173 cm Wt: 94 kg BSA: 2.15 m2 Gender: Male : 1970 Any Known Allergies: No known allergies Exam Priority: Routine Procedure(s): Procedure Description: Diagnostic procedure Procedure Description: Left Heart Catheterization Procedure Description: Left ventriculography Procedure Description: Coronary Angiography Chacorta RICH; Diagnostic Cath Status: Urgent Diagnostic Findings * The left main is a medium caliber vessel with no significant stenotic lesions. * The Left anterior descending artery's admitting caliber was which appears to wraparound the LV apex minimally. The artery was found to have mild diffuse disease in the proximal, mid and distal segments, lesions ranging from 20 to 30%. No significant stenotic lesions were noted. * The left circumflex artery is a dominant vessel which was found to give of the first obtuse marginal branch proximally. This artery was found to proximal tubular narrowing of around 30%. The distal circumflex was found to have minimal intimal irregularities. * The right coronary artery is a nondominant vessel with no significant stenotic lesions. Conclusions 1. 55-year-old white male with a history of high blood pressure and family history of premature atherosclerotic heart disease, presenting with chest pain. Abnormal exercise stress echo suggesting ischemia in the distribution of the left circumflex artery. For further evaluation of the patient's coronary status, a cardiac catheterization was recommended. Patient underwent left heart catheterization with selective right coronary angiogram and LV angiogram today. The findings are as follows. 2. No significant left main disease. Mild diffuse disease in the left anterior descending artery and the circumflex artery. Nondominant right coronary artery. LV ejection fraction 75%. Some features of hypertrophic obstructive cardiomyopathy. There appears to be an LV mid cavity contraction. Gradient across the LV outflow tract was around 22 mmHg. 3. Based on the above angiographic findings, it was decided to treat the patient medically. Diagnostic RX Recommendation: medical therapy and/or counseling Ventriculography Ejection Fraction: 75.0 % Left Ventriculography Findings: * LV gram was performed in the ESQUIVEL projection. The LV was found to be hypocontractile with ejection fraction around 75%. There appears to be a midcavity contraction. As I was trying to advance the LV catheter distally, patient developed nonsustained nuclear tachycardia. For that reason, the procedure was aborted. The LVEDP was 18 mmHg. There appears to be an LV outflow tract gradient of 22 mmHg. Pressures Phase:Rest AO : 75 / 59 ( 66 ) @ 4:18:00 PM 131 / 67 ( 94 ) @ 4:29:00 PM 132 / 70 ( 95 ) @ 4:29:00 PM LV : 161 / -7 / 18 @ 4:27:00 PM 157 / -4 / 14 @ 4:28:00 PM 153 / -8 / 15 @ 4:29:00 PM Valves Phase:DefaultPhase AV : 18.0 @ 3:32:59 PM AV Mean Gradient: 22.0 @ 3:32:59 PM Clinical Evaluation EBL: 5mL-10mL Procedural Details Procedure Consent Obtained. Pre-Procedure Time Out. Identified patient by full name and date of as verbalized by the patient/guarantor. Does the consent match the physician's order: Yes. Accurate & Complete Informed Consent: Yes. Inpatient/Outpatient History & Physical on Chart: Yes. If H&P is completed, is and addenduem needed: No. Visualize and Verify Site with Patient/Guarantor: Yes. Relevant Radiology Images available: Yes. The risks, benefits, and alternatives of sedation and/or procedure were discussed by physician. The patient agrees to continue. Procedure started. [facility] Clinical Fraility Score: 2: Well. Plumbing Service Technician Indications: New Onset Angina/Abnormal stress echocardiogram. Chest Pain Symptom Assessment: Typical Angina Symptoms. Cardiovascular Instability: No. Correct patient, site and procedure confirmed by cath team. PERRLA. Strong, equal hand line servicer bilaterally. Lungs clear x 5 lobes. IV Site on Arrival: 20 gauge in the left anticubital. IV Fluids: 0.9% NaCl at KVO. 0 mL infused prior to laborer adjustable steel joist. Pre Procedural Pulses: bilateral dorsalis pedis was 3+. Pre Procedural Pulses: bilateral posterior tibial was 3+. Pre Procedural Pulses: bilateral radial was 3+. Oxygen started at 2liters/min via nasal canula. right groin was prepped with chloroprep then draped in the usual sterile fashion. right radial was prepped with chloroprep then draped in the usual sterile fashion. Physician notified. Baseline sample Acquired. HR: 71 BPM. Patient's family in the laborer adjustable steel joist waiting room. Dr. Whatley will update at the completion of the procedure. Equipment: 6F - Radial. Cardiac Cath Pack. ACFlyCast Manifold Kit Model BT 2000. Heparinized Saline (2 units/mL), 1000 mL bag. Physician arrived. Physician scrubbed in. Immediate Pre-Procedure Time Out. Correct Patient: Yes; Correct Procedure: Yes; Correct Site: Yes; Correct Patient Position: Yes; Correct Supplies: Yes; Dried Flammable Prep: Yes; Blood Products Available: N/A;. Lidocaine 1% infiltrated to the right radial. Arterial access obtained. A 5 korean Sunny catheter in over the exchange J wire. Multiple views taken of left coronary artery. Catheter redirected to the RCA. Unable to cannulate RCA. Catheter removed over the exchange J wire. A 5 korean JR4 catheter in over the exchange J wire. Catheter removed over the exchange J wire. A 5 korean Angled Pig catheter in over the exchange J wire. EDP Sample taken: LV 161/-8,18; HR: 82 BPM; SpO2: 97%. Multiple views taken of right coronary artery. EDP Sample taken: LV 157/-5,14; HR: 101 BPM; SpO2: 98%. Pullback taken: LV 153/-8,15; AO 131/67(94); Mean: 22mmHg, Peak to Peak: 18mmHg, SEP: 9sec/min; HR: 88 BPM; SpO2: 98%. Catheter removed over the exchange J wire. A TR Band was successful obtaining hemostatsis at the Right Radial artery insertion site. Post Procedure: Pulses reassessed and unchanged. PERRLA. Strong, equal hand line servicer bilaterally. No VTE prophylaxis required. Medication's Wasted: Lidocaine 1% = 18 mL. Medication's Wasted: Nitro = 49.8 mg. Medication's Wasted: Heparin = 1000 units. Total IV fluids: 35 mL. Post-op diagnosis: normal coronaries. Complications: none. Estimated blood loss: 5mL-10mL. Responsiveness - Normal response to verbal stimuli; alert and oriented, PERRLA. Airway - Unaffected, no intervention required; spontaneous ventilation. Circulation: W/N/L, pulses unchanged. Nausea/Vomiting: No. Procedure completed. Patient transferred by wheelchair to 1st floor. Vital chart was stopped. Access Site Site: Right Radial artery Sheath Size: 6 Fr Hemostasis Method: TR Band Hemostasis Success: Successful Procedure Medications Start: 3:07 PM Stop: 3:07 PM Medication: Versed Amount: 1 mg Route: I.V. Start: 3:08 PM Stop: 3:08 PM Medication: Fentanyl Amount: 50 mcg Route: I.V. Start: 3:11 PM Stop: 3:11 PM Medication: Versed Amount: 1 mg Route: I.V. Start: 3:13 PM Stop: 3:13 PM Medication: Verapamil Amount: 5 mg Route: I.A. Start: 3:13 PM Stop: 3:13 PM Medication: Nitrogylcerin Amount: 200 mcg Route: I.A. Start: 3:13 PM Stop: 3:13 PM Medication: Fentanyl Amount: 25 mcg Route: I.V. Start: 3:15 PM Stop: 3:15 PM Medication: Heparin Amount: 5000 units Route: I.V. Start: 3:08 PM Stop: 3:08 PM Medication: Benadryl Amount: 25 mg Route: I.V. Start: 3:22 PM Stop: 3:22 PM Medication: Fentanyl Amount: 25 mcg Route: I.V. I, the attending physician, have reviewed and verified all procedure medications. Yes, all medications given per verbal order History/Risk Factors Hypertension: Yes Dyslipidemia: No Peripheral Arterial Disease (PAD): No Myocardial Infarction (RI): No Obesity: No Renal Disease: No Tobacco Use: Current/Recent(w/in 1 year) Prior Interventions PCI: No CABG: No Valve Surgery: No Report Signatures Finalized by Dr Scarlett Whatley MD [facility] on 06/25/2025 06:19 PM
[2025-06-25 07:37] LABS: Cholesterol 148 mg/dL (0-200); HDL Cholesterol 38 mg/dL (60-100); Triglycerides 59 mg/dL (0-150)
[2025-06-25 08:05] LABS: CRP High Sensitivity Cardiac < 0.150 mg/dL (0.0-0.3)
--- NOTE | 2025-06-25 08:09 | PM.PN ---
Subjective Subjective: Patient still has episodes of pain/discomfort with no worsening. Vital signs are stable. Blood pressure seems to be mostly under control Medications: Medication Review Details: Current Medications Acetaminophen (Acetaminophen 325 Mg Tablet) 650 mg PO Q6H PRN PRN Reason: Mild/Mod Pain Or Temp >/= 101 Amlodipine Besylate (Amlodipine 10 Mg Tablet) 10 mg PO DAILY [facility] Last Admin: 06/25/25 04:45 Dose: 10 mg Aspirin (Aspirin 81 Mg Ec Tablet) 81 mg PO DAILY [facility] Last Admin: 06/25/25 04:45 Dose: 81 mg Aspirin (Aspirin 325 Mg Tablet) 325 mg PO ONCE ONE Stop: 06/25/25 10:01 Atorvastatin Calcium (Atorvastatin 40 Mg Tablet) 40 mg PO BEDTIME [facility] Last Admin: 06/24/25 20:53 Dose: 40 mg Buspirone HCl (Buspirone 10 Mg Tablet) 10 mg PO BID [facility] Last Admin: 06/25/25 04:46 Dose: 10 mg Citalopram Hydrobromide (Citalopram 20 Mg Tablet) 20 mg PO DAILY [facility] Last Admin: 06/25/25 04:45 Dose: 20 mg Diphenhydramine HCl (Diphenhydramine 50 Mg Capsule) 50 mg PO ONCE ONE Stop: 06/25/25 10:01 Esmolol HCl (Esmolol 100 Mg/10 Ml Sdv) 5 mg IVP PRN PRN PRN Reason: See dose instructions Sodium Chloride (Sodium Chloride 0.9%) 1,000 mls @ 50 mls/hr IV .Q20H [facility] Last Admin: 06/25/25 04:46 Dose: 50 mls/hr Lorazepam (Lorazepam 1 Mg Tablet) 1 mg PO BID PRN PRN Reason: Anxiety or insomnia Last Admin: 06/24/25 20:53 Dose: 1 mg Losartan Potassium (Losartan 50 Mg Tablet) 50 mg PO DAILY [facility] Last Admin: 06/25/25 04:45 Dose: 50 mg Metoprolol Tartrate (Metoprolol Tartrate 1 Mg/1 Ml Sdv 5 Ml) 5 mg IVP PRN PRN PRN Reason: See dose instructions Nitroglycerin (Nitroglycerin 0.4 Mg Sublingual Tablet) 0.4 mg SUBLINGUAL Q5M PRN PRN Reason: CHEST PAIN Ondansetron HCl (Ondansetron 2 Mg/Ml Sdv 2 Ml) 4 mg IVP Q8H PRN PRN Reason: vomiting, or N/V if npo Vitals/I&O/Wt Last Vital Signs Temp 97.4 F L 06/25/25 07:57 Pulse 66 06/25/25 07:57 Resp 17 06/25/25 07:57 BP 141/80 06/25/25 07:57 Pulse Ox 95 06/25/25 07:57 O2 Del Method Room Air 06/25/25 07:57 06/24/25 06/25/25 06/25/25 22:59 06:59 14:59 Intake Total 240 / 240 Balance 240 / 240 Weight last 48 hrs Weight 207 lb Weight 207 lb 10.807 oz Weight 207 lb 10.807 oz Weight 209 lb Physical Exam Narrative: GENERAL: The patient is alert and oriented times three. Not in any acute distress. HEENT: No significant pallor, icterus or lymphadenopathy.Oral cavity: There are no mucous membrane lesions. NECK: Trachea appears to be central. No masses noted. No JVD or thyromegaly appreciated. RESPIRATORY: Chest is symmetrical. No intercostals muscle retraction or any accessory muscle activation. There is no chest wall tenderness. Breath sounds are heard bilaterally. No rales or rhonchi heard. No evidence of any consolidation. BREASTS: Deferred. HEART: The heart sounds are normal. No S3 or S4. No significant murmurs. No pericardial rub ABDOMEN: No vessel pulsations or distention. No tenderness. No organomegaly appreciated. Bowel sounds are normally heard. : Deferred. RECTAL: Deferred. LYMPHATIC: No lymphadenopathy noted in the neck. EXTREMITIES: No edema or cyanosis. No clubbing. MUSCULOSKELETAL: No acute joint deformities or swelling SKIN: There are no significant rashes or ecchymosis NEUROPSYCHIATRIC: The patient is alert and oriented x3. Appears to be in a good mood. No tremors or rigidity noted. Data 06/23/25 06:14 06/23/25 06:37 Other Labs: Laboratory Last Values WBC 8.61 10^3/uL (3.29-11.43) 06/23/25 06:14 RBC 5.13 10^6/uL (3.85-5.65) 06/23/25 06:14 Hgb 15.90 g/dL (11.27-16.99) 06/23/25 06:14 Hct 44.7 % (37-53) 06/23/25 06:14 MCV 87.1 fl (82-101) 06/23/25 06:14 MCH 31.0 pg (27-33) 06/23/25 06:14 MCHC 35.6 g/dL (30-55) 06/23/25 06:14 RDW 11.9 % (12.1-15.1) L 06/23/25 06:14 Plt Count 354 10^3/cmm (157-399) 06/23/25 06:14 MPV 9.0 fL (7.4-10.4) 06/23/25 06:14 Neut % (Auto) 67.8 % 06/23/25 06:14 Lymph % (Auto) 22.2 % 06/23/25 06:14 [place] % (Auto) 8.9 % 06/23/25 06:14 Eos % (Auto) 0.5 % 06/23/25 06:14 Baso % (Auto) 0.3 % 06/23/25 06:14 Neut # (Auto) 5.83 10^3/uL (1.8-7.7) 06/23/25 06:14 Lymph # (Auto) 1.9 10^3/uL (0.8-4.8) 06/23/25 06:14 [place] # (Auto) 0.8 10^3/uL (0.2-0.9) 06/23/25 06:14 Eos # (Auto) 0.0 10^3/uL (0.0-0.8) 06/23/25 06:14 Baso # (Auto) 0.0 10^3/uL (0.0-0.1) 06/23/25 06:14 Nucleated RBC % (auto) 0 % 06/23/25 06:14 Nucleated RBCs # 0.0 /100WBC 06/23/25 06:14 Sodium 132 mmol/L (136-145) L 06/23/25 06:37 Potassium 3.7 mmol/L (3.5-5.1) 06/23/25 06:37 Chloride 93 mmol/L (98-107) L 06/23/25 06:37 Carbon Dioxide 24 mmol/L (22-29) 06/23/25 06:37 Anion Gap 18.7 (5-19) 06/23/25 06:37 BUN 10 mg/dL (6-20) 06/23/25 06:37 Creatinine 1.0 mg/dL (0.7-1.2) 06/23/25 06:37 GFR Calculation 78.2 mL/min (90-130) L 06/23/25 06:37 Glucose 135 mg/dL (65-115) H 06/23/25 06:37 Calculated Osmolality 275 mOsm/kg (285-295) L 06/23/25 06:37 Calcium 10.0 mg/dL (8.5-10.5) 06/23/25 06:37 Total Bilirubin 0.8 mg/dL (0.15-1.2) 06/23/25 06:37 AST 21 U/L (0-40) 06/23/25 06:37 ALT 21 U/L (0-41) 06/23/25 06:37 Alkaline Phosphatase 93 U/L (40-130) 06/23/25 06:37 Troponin T Baseline 11 ng/L (0-15) 06/23/25 06:37 Troponin T 120 Minute 9.28 ng/L (0-15) 06/23/25 08:22 Delta Troponin T -1.72 ABS# (0-10) L 06/23/25 08:22 Troponin T Hi Sens 6Hr 10.33 ng/L (0-15) 06/23/25 12:31 Troponin T Hi Sens 6Hr Delta -0.67 ng/L (0-12) L 06/23/25 12:31 C-React Prot High Sens < 0.150 mg/dL (0.0-0.3) 06/25/25 07:04 Total Protein 8.0 g/dL (6.6-8.7) 06/23/25 06:37 Albumin 5.1 g/dL (3.5-5.2) 06/23/25 06:37 Globulin 2.9 g/dL (1.3-4.6) 06/23/25 06:37 Triglycerides 58 mg/dL (0-150) 06/25/25 07:04 Triglycerides 59 mg/dL (0-150) 06/25/25 07:04 Cholesterol 145 mg/dL (0-200) 06/25/25 07:04 Cholesterol 148 mg/dL (0-200) 06/25/25 07:04 LDL Cholesterol, Calc 95 mg/dL (50-129) 06/25/25 07:04 LDL Cholesterol, Calc 98 mg/dL (50-129) 06/25/25 07:04 HDL Cholesterol 38 mg/dL (60-100) L 06/25/25 07:04 HDL Cholesterol 38 mg/dL (60-100) L 06/25/25 07:04 LDL/HDL Ratio 2.50 RATIO (0.00-3.22) 06/25/25 07:04 LDL/HDL Ratio 2.58 RATIO (0.00-3.22) 06/25/25 07:04 Cholesterol/HDL Ratio 3.82 mg/dL (1.0-5.00) 06/25/25 07:04 Cholesterol/HDL Ratio 3.89 mg/dL (1.0-5.00) 06/25/25 07:04 Lipase 38 U/L (13-60) 06/23/25 06:37 A&P Assessment and plan 1. Abnormal cardiovascular stress test: The implication of the abnormal stress echocardiogram was discussed with the patient detail. The limitations of this test were discussed. In view of the ongoing symptoms, he would benefit from a cardiac catheterization. 2. Chest pain, unspecified type: The patient's chest pain is somewhat atypical. However in view of the abnormal stress test and the risk factors, possibility of him having underlying coronary disease is very high. 3. Primary hypertension: Currently the blood pressure is under control. May continue on the current management. 4. Traumatic injury of kidney: The kidney function seems to be appropriate at this time. Plan: For further evaluation of the patient's symptoms, a cardiac catheterization would be appropriate. Patient is scheduled for the angiogram today. The risks and benefits were discussed with the patient in detail. The risk of bleeding, hematoma, vascular injury, myocardial infarction, myocardial perforation, malignant cardiac arrhythmias ,CVA, renal failure and other concomitant complications were explained in detail. Patient understood this well and consented to proceed. Based on the angiogram findings, further recommendations will be made. Will keep n.p.o. PDMP PDMP Reviewed: Not Reviewed Attestations Medical Necessity Statement*: Patient requires continued hospital stay for close monitoring and further management Coding Level of Care Code 07916 Diagnoses Abnormal cardiovascular stress test R94.39 Chest pain, unspecified type R07.9 Chest pain type: unspecified Primary hypertension I10 Hypertension type: primary hypertension Traumatic injury of kidney S37.009A
[2025-06-25 11:11] LABS: Estmated Average Glucose 108; Hemoglobin A1C 5.4 % (4.0-6.0)
[2025-06-25 11:53] LABS: Iron 121 ug/dL (59-158); Total Iron Binding Capacity 287 mcg/dl; Unsaturated Iron Binding 166 ug/dL (112-347)
[2025-06-25 12:10] LABS: Vitamin B12 388 pg/mL (232-1245)
--- NOTE | 2025-06-25 12:36 | P.PN_ITS ---
Subjective 2 Subjective: Hospital course, labs appreciated. Seen with family at bedside. Sitting operatively in bed. Complaining of occasional chest heaviness. Vitals/I&O/Wt Last Vital Signs Temp 98.1 F 06/25/25 11:24 Pulse 72 06/25/25 11:24 Resp 17 06/25/25 11:24 BP 131/80 06/25/25 11:24 Pulse Ox 95 06/25/25 11:24 O2 Del Method Room Air 06/25/25 11:24 06/24/25 06/25/25 06/25/25 22:59 06:59 14:59 Intake Total 240 / 240 Balance 240 / 240 Weight last 48 hrs Weight 93.894 kg Weight 94.2 kg Weight 94.2 kg Weight 94.801 kg Physical Exam 2 Narrative: General well-developed well-nourished male modestly anxious CV regular rate and rhythm Lungs clear to auscultation bilaterally Abdomen positive bowel tones soft nontender Calves no tenderness cords pedal edema Mood and affect anxious warm mildly damp Data 06/23/25 06:14 06/23/25 06:37 A&P Assessment and plan 1. Chest pain, unspecified type: This is somewhat atypical in the patient is anxious but this is his second visit and he has nonspecific ST-T wave changes. Cardiac enzymes negative. Proceed with treadmill stress echo which was positive on echo and EKG but negative for symptomatology and he did 10.2 METS. 2. Primary hypertension: stop hydralazine due to tachycardia. Patient states that because he works out a lot his baseline heart rate is a little slow Plan: Plan for the day: Check A1c, lipid panel. Appreciate echocardiogram. Appreciate cardiology recommendations. Plan for cardiac angiogram. Continue with aspirin, statin. Goal blood pressure less than 140/90 mmHg. Continue with current dose of amlodipine and losartan. Uptitrate as for goal blood pressure. PDMP PDMP Reviewed: Not Reviewed Attestations 2 Medical Necessity Statement*: Requires further hospitalization for management of chest pain under evaluation by patient request cardiac angiogram Diagnoses Chest pain, unspecified type R07.9 Chest pain type: unspecified Primary hypertension I10 Hypertension type: primary hypertension
--- NOTE | 2025-06-25 13:13 | W.PM.OPSUD ---
Surgery/Procedure H&P Update DATE OF PROCEDURE: June 25, 2025 DATE H&P PERFORMED: 06/24/25 H&P UPDATE INFORMATION: I have reviewed H&P completed within last 30 days, I have examined patient prior to procedure and No changes to prior documentation PREOP DIAGNOSIS: possible Atherosclerotic heart disease PRIMARY INDICATION FOR PROCEDURE: Patient with chest pain and abnormal Myocardial perfusion imaging PLANNED PROCEDURE: Left heart catheterization with coronary angiogram and possible PCI PATIENT REASSESSED PRIOR TO SEDATION, WITH NO CHANGE NOTED: Yes PHYSICAL EXAM: alert, oriented x 3, clear to auscultation bilaterally and regular rate & rhythm AIRWAY EVAL/ANESTHESIA PLAN: normal airway, see other exam findings, ASA III, Monitored Anesthesia, Local Anesthesia, Risks, benefits & alternatives of sedation and/or procedure discussed and Patient agrees to continue as planned
--- NOTE | 2025-06-25 17:46 | PM.DCS ---
Discharge Providers Date of Admission: 06/23/25 11:50 Date of Discharge: June 25, 2025 Attending Provider at Admission: Rosendo Farooq MD Attending Provider at Discharge: Michael Moreira MD Consults: Cardiology: Dr. Whatley Primary Care Provider: Darren Jeffries MD Diagnoses at Discharge Discharge Diagnosis 1. Abnormal cardiovascular stress test: 2. Chest pain, unspecified type: 3. Primary hypertension: 4. Traumatic injury of kidney: Reason for Visit Reason for Visit: CP Brief History: Per HPI Baldo Mckeon is a 55 year old male in general good health recently moved to [place] from [facility] with his Lelo. He states that has been stressful and they have been unlucky since they moved here. He states it was hard to find a house that could be bought even at full asking madden. Patient states that he had pressure in his left pectoral muscle not radiating 2-3/10 off and on he lost his appetite and has been anxious concerned that it could be his heart so losing sleep. Saturday the he was seen in the emergency department and EKG x-ray and blood work are okay so he was told it might be anxiety and discharged home. Patient had prescription for hydralazine and states that lowered his blood pressure but increased his heart rate from 60s to 90s. Today he returned with more chest pain took a nitro and that helped. Cardiac enzymes again negative. EKGs show inferolateral T wave flattening leads 2,3, V5 and V6 cannot exclude ischemia. This actually was worse on Saturday than it is now but this is the patient's second EMD visit. Hospital Course Hospital Course Patient was admitted for further evaluation and management of chest pressure. Cardiology was consulted given ongoing symptoms. He underwent cardiopulmonary stress test with echocardiogram which showed exercise-induced hypokinesia of the inferior lateral wall segment for testing of ischemia in LCx territory. He underwent cardiac angiogram on 06/25 which showed normal coronaries. He has been discharged in hemodynamically stable condition on adjusted antihypertensive with PPIs with advised to follow-up with his PCP within next 1 week. He is to check his blood pressure daily at home maintain blood pressure diary with goal blood pressure less than 140/90 mmHg. Physical Exam Narrative: General: No acute distress, AO x3 HEENT: PERRLA, pupils bilaterally equal and reactive Chest: Normal vesicular breath sounds, no added sounds, equal good air entry bilaterally CVS: S1-S2 regular, no murmurs, no tachycardia, no gallops, no rubs Abdomen: Soft, nontender, no organomegaly, bowel sounds present Neuro: No focal deficits, no facial deformity, AO x3, power 5/5 in all limbs Discharge Data Studies Completed and Pending Completed Studies During Hospitalization Category Date Time Status Cardiac Stress Test Request Routine Exams 06/24/25 06:00 Completed XR chest 1V portable [id number] Stat Exams 06/23/25 06:06 Completed CV. echo complete* [id number] Stat Ultrasound 06/23/25 09:28 Com[place] [id number] Routine Ultrasound 06/24/25 13:32 Completed Pending at discharge Category Date Time Status [employer] request for service Routine Exams 06/25/25 06:31 Taken Complete Blood Count w/Auto AM LABS Lab 06/26/25 04:00 Ordered Comprehensive Metabolic Panel AM LABS Lab 06/26/25 04:00 Ordered Folate Level AM LABS Lab 06/26/25 04:00 Ordered Lipoprotein (a) Routine Lab 06/25/25 07:04 Received Radiology Impressions Chest X-Ray 06/23/25 06:06 IMPRESSION: No acute findings. Stress echocardiogram: FINDINGS The baseline echocardiogram revealed normal LV size and ejection fraction. Segmental wall motion analysis revealed no gross wall motion abnormalities. The aortic and the mitral valve appears to hide no gross abnormalities. Aortic annulus was of normal size . No pericardial effusion With a peak exercise, there was diffuse hypokinesis of the inferolateral wall segment. All other segments were found to be augmenting well During the recovery, there was no new wall motion abnormalities. CONCLUSIONS 1. Exercise-induced hypokinesis of the inferolateral wall segment, suggesting ischemia in the distribution of the left circumflex artery No similar previous studies are available for comparison Dr Scarlett Whatley MD [facility] (Electronically Signed) Final Date: 24 June 2025 16:20 S Echocardiogram: CONCLUSIONS Normal left ventricular size and systolic function, EF 64%. No regional wall motion abnormalities. Grade I/IV diastolic dysfunction (abnormal relaxation filling pattern), normal to mildly elevated filling pressures. Trace mitral valve regurgitation. Trace tricuspid valve regurgitation. Estimated pulmonary artery peak systolic pressure within normal limits. There is no pericardial effusion. There are no intracardiac masses. No similar previous studies are available for comparison Dr Scarlett Whatley MD [facility] (Electronically Signed) Final Date: 23 June 2025 21:43 S Laboratory Results WBC 8.61 10^3/uL (3.29-11.43) 06/23/25 06:14 RBC 5.13 10^6/uL (3.85-5.65) 06/23/25 06:14 Hgb 15.90 g/dL (11.27-16.99) 06/23/25 06:14 Hct 44.7 % (37-53) 06/23/25 06:14 MCV 87.1 fl (82-101) 06/23/25 06:14 MCH 31.0 pg (27-33) 06/23/25 06:14 MCHC 35.6 g/dL (30-55) 06/23/25 06:14 RDW 11.9 % (12.1-15.1) L 06/23/25 06:14 Plt Count 354 10^3/cmm (157-399) 06/23/25 06:14 MPV 9.0 fL (7.4-10.4) 06/23/25 06:14 Neut % (Auto) 67.8 % 06/23/25 06:14 Lymph % (Auto) 22.2 % 06/23/25 06:14 [place] % (Auto) 8.9 % 06/23/25 06:14 Eos % (Auto) 0.5 % 06/23/25 06:14 Baso % (Auto) 0.3 % 06/23/25 06:14 Neut # (Auto) 5.83 10^3/uL (1.8-7.7) 06/23/25 06:14 Lymph # (Auto) 1.9 10^3/uL (0.8-4.8) 06/23/25 06:14 [place] # (Auto) 0.8 10^3/uL (0.2-0.9) 06/23/25 06:14 Eos # (Auto) 0.0 10^3/uL (0.0-0.8) 06/23/25 06:14 Baso # (Auto) 0.0 10^3/uL (0.0-0.1) 06/23/25 06:14 Nucleated RBC % (auto) 0 % 06/23/25 06:14 Nucleated RBCs # 0.0 /100WBC 06/23/25 06:14 Sodium 132 mmol/L (136-145) L 06/23/25 06:37 Potassium 3.7 mmol/L (3.5-5.1) 06/23/25 06:37 Chloride 93 mmol/L (98-107) L 06/23/25 06:37 Carbon Dioxide 24 mmol/L (22-29) 06/23/25 06:37 Anion Gap 18.7 (5-19) 06/23/25 06:37 BUN 10 mg/dL (6-20) 06/23/25 06:37 Creatinine 1.0 mg/dL (0.7-1.2) 06/23/25 06:37 GFR Calculation 78.2 mL/min (90-130) L 06/23/25 06:37 Glucose 135 mg/dL (65-115) H 06/23/25 06:37 Estimat Average Glucose 108 06/23/25 06:37 Hemoglobin A1c 5.4 % (4.0-6.0) 06/23/25 06:37 Calculated Osmolality 275 mOsm/kg (285-295) L 06/23/25 06:37 Calcium 10.0 mg/dL (8.5-10.5) 06/23/25 06:37 Iron 121 ug/dL (59-158) 06/25/25 07:04 TIBC 287 mcg/dl 06/25/25 07:04 % Saturation 42.1 % (20-50) 06/25/25 07:04 Unsat Iron Binding 166 ug/dL (112-347) 06/25/25 07:04 Total Bilirubin 0.8 mg/dL (0.15-1.2) 06/23/25 06:37 AST 21 U/L (0-40) 06/23/25 06:37 ALT 21 U/L (0-41) 06/23/25 06:37 Alkaline Phosphatase 93 U/L (40-130) 06/23/25 06:37 Troponin T Baseline 11 ng/L (0-15) 06/23/25 06:37 Troponin T 120 Minute 9.28 ng/L (0-15) 06/23/25 08:22 Delta Troponin T -1.72 ABS# (0-10) L 06/23/25 08:22 Troponin T Hi Sens 6Hr 10.33 ng/L (0-15) 06/23/25 12:31 Troponin T Hi Sens 6Hr Delta -0.67 ng/L (0-12) L 06/23/25 12:31 C-React Prot High Sens < 0.150 mg/dL (0.0-0.3) 06/25/25 07:04 Total Protein 8.0 g/dL (6.6-8.7) 06/23/25 06:37 Albumin 5.1 g/dL (3.5-5.2) 06/23/25 06:37 Globulin 2.9 g/dL (1.3-4.6) 06/23/25 06:37 Triglycerides 59 mg/dL (0-150) 06/25/25 07:04 Triglycerides Cancelled 06/25/25 07:04 Cholesterol 148 mg/dL (0-200) 06/25/25 07:04 Cholesterol Cancelled 06/25/25 07:04 LDL Cholesterol, Calc 98 mg/dL (50-129) 06/25/25 07:04 LDL Cholesterol, Calc Cancelled 06/25/25 07:04 HDL Cholesterol 38 mg/dL (60-100) L 06/25/25 07:04 HDL Cholesterol Cancelled 06/25/25 07:04 LDL/HDL Ratio 2.58 RATIO (0.00-3.22) 06/25/25 07:04 LDL/HDL Ratio Cancelled 06/25/25 07:04 Cholesterol/HDL Ratio 3.89 mg/dL (1.0-5.00) 06/25/25 07:04 Cholesterol/HDL Ratio Cancelled 06/25/25 07:04 Lipase 38 U/L (13-60) 06/23/25 06:37 Vitamin B12 388 pg/mL (232-1245) 06/25/25 07:04 Vitals Last Vital Signs Temp 97.6 F 06/25/25 16:46 Pulse 65 06/25/25 16:46 Resp 16 06/25/25 16:46 BP 135/84 06/25/25 16:46 Pulse Ox 99 06/25/25 16:46 O2 Del Method Room Air 06/25/25 16:46 Discharge Plan Discharge Patient Disposition: Home Condition: Stable Prescriptions: New pantoprazole [Protonix] 40 mg tablet,delayed release (DR/EC) 40 mg PO DAILY 28 Days Qty: 30 0RF Continued hydralazine 25 mg tablet 25 mg PO TID PRN (Reason: High blood pressure) Qty: 30 0RF buspirone 10 mg tablet 10 mg PO BID amlodipine 10 mg tablet 10 mg PO DAILY telmisartan-hydrochlorothiazid 80-25 mg tablet 1 tab PO DAILY Discharge Order = DC NOW: Discharge Order (Routine); Ordered 06/25/25 Ordered By: Michael Moreira Referrals: Darren Jeffries MD [Primary Care Provider, Family Practice] - 2 weeks Patient Instructions: Opioid Safety, Patient Portal & Ethan Instructions Activity Restrictions/Additional Instructions: Check blood pressure daily at home maintain blood pressure diary. Goal blood pressure less than 140/90 mmHg Discharge Attestations Time Spent in Discharge Care*: greater than 30 min Specific Discharge Activities: educating patient, educating and/or supporting family/caregiver, discussing with pcp/other providers, discussing with manager of case/social workers/dc planners, documenting/other paperwork and evaluating patient/reviewing data Status at Discharge: Cognitive status at discharge: cognitively intact, Behavioral status at discharge: cooperative, Functional status at discharge: independent ambulation, Overall status at discharge: patient is back to baseline Quality Metrics Clinical Quality Measures [ No reported AMI, CVA or VTE this stay] Coding Level of Care Code 29975 Total time (in minutes) for Discharge: 65 Diagnoses Abnormal cardiovascular stress test R94.39 Chest pain, unspecified type R07.9 Chest pain type: unspecified Primary hypertension I10 Hypertension type: primary hypertension Traumatic injury of kidney S37.009A
== END 2025-06-25 18:37 | disposition home or self-care (01) ==
LOC: ER 07:38 → ER IP 11:51 → MEDSURG 14:05 → CSU 06-25 16:21
PROVIDERS: Internal Medicine Cardiovascular Disease; Admitting Provider Internal Medicine; Emergency Provider Emergency Medicine; PCP Family Medicine; Visit Provider Student in an Organized Health Care Education/Training Program
DX: R07.9 Chest pain, unspecified (principal); R94.39 Abnormal result of other cardiovascular function study; I10 Essential (primary) hypertension; S37.009A Unspecified injury of unspecified kidney, initial encounter; X58.XXXA Exposure to other specified factors, initial encounter; Z82.49 Family history of ischemic heart disease and other diseases of the circulatory system; Z79.82 Long term (current) use of aspirin; F17.210 Nicotine dependence, cigarettes, uncomplicated; F41.9 Anxiety disorder, unspecified
CPT/HCPCS: 36415; 71045; 80053; 80061; 82607; 83036; 83540; 83550; 83690; 83695; 84484; 85025; 86141; 93005; 93017; 93306; 93350; 93458; 96374; 99152; 99285; C1769; C1887; C1894; G0378; J1200; J1644; J2060; J2250; J3010; J3490; J7030; J9999; Q9967

== ENCOUNTER → 2025-07-13 13:06 | Outpatient (BNVA) | payer OTHER, SELFPAY | PROVIDERS: PCP Family Medicine; Visit Provider Nurse Practitioner Family | DX: I25.10 Atherosclerotic heart disease of native coronary artery without angina pectoris (principal); Q24.8 Other specified congenital malformations of heart; I42.2 Other hypertrophic cardiomyopathy; I10 Essential (primary) hypertension; F41.9 Anxiety disorder, unspecified; Z87.891 Personal history of nicotine dependence | CPT/HCPCS: 99214 ==